=== PATIENT | female | born 1950 | race Caucasian/White ===

== ENCOUNTER 2018-06-11 01:25 | Outpatient (CLI) | payer MEDICARE, BC, SELFPAY ==
[2018-06-11 14:27] LABS: CREATININE 1.08 mg/dL (0.55-1.02); Estimated GFR 50.45 (mL/min/1.73m2); Potassium 4.8 mmol/L (3.5-5.1)
== END 2018-06-11 01:45 ==
PROVIDERS: PCP Family Medicine; Visit Provider Family Medicine
DX: I10 Essential (primary) hypertension (principal)
CPT/HCPCS: 36415; 82565; 84132

== ENCOUNTER 2018-10-31 10:12 | Emergency (ER) | payer MEDICARE, BC, SELFPAY ==
[2018-10-31 10:17] VITALS: BP 151/80; PULSE 80; RESP 16; TEMP 36.6; O2SAT 98
--- NOTE | 2018-10-31 10:27 | W.ED.GENAD ---
Discharge Plan Disposition Patient Disposition: HOME Condition: Improving Discharge Details Chief Complaint: RespSymp Clinical Impression: Acute bronchitis Primary Care Provider: Godfrey Durand ED Provider: Destin Arce Home Meds and New Rx's Prescriptions: New amoxicillin-pot clavulanate 875-125 mg tablet 1 tab PO BID 10 Days Qty: 20 RF: 0 Continued losartan 50 mg tablet 50 mg PO DAILY Qty: 90 RF: 3 clonazepam 0.5 mg tablet 0.5 mg PO BID PRN (Reason: anxiety) Qty: 15 RF: 0 aspirin [Aspir-81] 81 MG tablet,delayed release (DR/EC) 81 mg PO DAILY Qty: 100 RF: 3 imipramine HCl 50 MG tablet 50 mg PO DAILY Qty: 90 RF: 3 metoprolol succinate 100 MG tablet extended release 24 hr 100 mg PO DAILY Qty: 90 RF: 3 simvastatin 40 MG tablet 40 mg PO DAILY Qty: 90 RF: 3 Discharge Instructions Instructions: Acute Bronchitis (ED) Additional Instructions: Please take Augmentin twice daily as prescribed. I recommend you take an [id number]-[id number] probiotic once daily in the middle the day while on this medication. May use the provided albuterol inhaler 1 to 2 puffs every 4-6 hours as needed for wheeze or shortness of breath during times of illness. Continue your regular medications. Follow-up with Dr. York if not improving in 1 week's time. Return to the ER for any acute concern. Medical Decision Making 68-year-old female former smoker who presents with 4 to 5 days of cough, congestion, sinus pain and pressure and production of green sputum with associated subjective fever and chills at home. She is afebrile and oxygenating normally. Her exam reveals bilateral end expiratory wheeze and sinus pain to percussion. Given albuterol inhaler with spacer and teaching at the bedside with improvement. I do feel she has an acute bronchitis with developing sinusitis and with her probable underlying mild COPD, will treat with a course of Augmentin. She will follow-up with Dr. Durand in clinic if not improving in 1 week's time. She understands homecare and return precautions to the ER. HPI General Mode of arrival: ambulatory. Date/Time Provider Initiated Documentation: 10/31/18 10:13. Limitations to Documentation: no limitations. Information obtained by: patient and family. History of Present Illness 68 year old F presents to the emergency department with the chief complaint of Sinus pain, pressure, cough with production of green sputum, described as moderate, Quality is described as dull and constant, and is localized to the head, face and chest. Patient reports no radiation. Patient started experiencing this day(s) and it has been constant. No relieving factors improve symptom(s), No exacerbating factors reported . Patient notes cough, fever/chills and other (Sputum for); denies chest pain, nausea/vomiting and shortness of breath. Patient did receive the following treatments prior to arrival, none Related Data Home Medications Medication Instructions Recorded Confirmed aspirin [Aspir-81] 81 mg PO DAILY #100 tab-cap 05/30/15 10/31/18 imipramine HCl 50 mg PO DAILY #90 tab-cap 11/18/17 10/31/18 metoprolol succinate 100 mg PO DAILY #90 tab-cap 18 10/31/18 simvastatin 40 mg PO DAILY #90 tab-cap 18 10/31/18 clonazepam 0.5 mg tablet 0.5 mg PO BID PRN #15 tab-cap 06/02/18 10/31/18 losartan 50 mg tablet 50 mg PO DAILY #90 tab-cap 06/02/18 10/31/18 amoxicillin-pot clavulanate 1 tab PO BID 10 Days #20 tab 10/31/18 Previous Rx's Medication Instructions Recorded imipramine HCl 50 mg PO DAILY #90 tab-cap 11/18/17 metoprolol succinate 100 mg PO DAILY #90 tab-cap 11/18/17 simvastatin 40 mg PO DAILY #90 tab-cap 11/18/17 clonazepam 0.5 mg tablet 0.5 mg PO BID PRN #15 tab-cap 06/02/18 losartan 50 mg tablet 50 mg PO DAILY #90 tab-cap 06/02/18 amoxicillin-pot clavulanate 1 tab PO BID 10 Days #20 tab 10/31/18 Allergies Allergy/AdvReac Type Severity Reaction Status Date / Time hydrochlorothiazide AdvReac Unverified 10/31/18 10:20 lisinopril AdvReac Unverified 10/31/18 10:20 General Stated Complaint: RespSymp SHANICE: 3 Review of Systems Review of Systems 8 systems reviewed and otherwise negative [facility] Surgical History Colonoscopy - MAC (10/09/17) Social History Smoking/Tobacco Use Status: Former Tobacco Use Alcohol Intake: never Drug use: Never Substance use type: does not use Do you feel safe at home: Yes Do you feel safe in your relationship?: Yes Exam Narrative Exam Narrative: GEN: awake, alert, oriented 3. Pleasant, well groomed, interactive. HEAD: Normocephalic, atraumatic ENT: Mucous membranes moist, oropharynx unremarkable, External ear exam unremarkable. Tympanic membranes clear bilaterally. There is maxillary sinus tenderness to percussion EYES: PERRL, EOMI NECK: Full ROM, no RICHELLE, no menigismus CHEST/RESP: Nontender, bilateral end expiratory wheeze CARDIOVASCULAR: RRR, no murmur, rub aleksandra. 2+ Rad pulse bilateral ABDOMEN: Soft, nontender, no mass. +Bowel sounds EXT: Full ROM, no edema, no rash Neuro: Grossly normal neurologic exam, conversant, interactive. Psych: Speech fluent, thoughts congruent, affect normal Course Vital Signs Temperature 36.6 C 10/31/18 10:17 Pulse 80 10/31/18 10:17 Respiratory Rate 16 10/31/18 10:17 Blood Pressure 151/80 H 10/31/18 10:17 Pulse Oximetry 98 10/31/18 10:17 Temperature 36.6 C 10/31/18 10:17 Temperature Source Temporal Artery Scan 10/31/18 10:17 Pulse 80 10/31/18 10:17 Respiratory Rate 16 10/31/18 10:17 Respiratory Effort Non-Labored 10/31/18 10:18 Blood Pressure 151/80 H 10/31/18 10:17 Blood Pressure Position Sitting 10/31/18 10:17 Pulse Oximetry 98 10/31/18 10:17 Oxygen Delivery Method Room Air 10/31/18 10:17 Oxygen Flow Rate 0 10/31/18 10:17 Pain Level 0 10/31/18 10:17
--- NOTE | 2018-10-31 10:30 | ED.GENADUL_ITS ---
Discharge Plan Disposition Patient Disposition: HOME Condition: Improving Discharge Details Chief Complaint: RespSymp Clinical Impression: Acute bronchitis Primary Care Provider: Godfrye Durand ED Provider: Destin Arce Home Meds and New Rx's Prescriptions: New amoxicillin-pot clavulanate 875-125 mg tablet 1 tab PO BID 10 Days Qty: 20 RF: 0 Continued losartan 50 mg tablet 50 mg PO DAILY Qty: 90 RF: 3 clonazepam 0.5 mg tablet 0.5 mg PO BID PRN (Reason: anxiety) Qty: 15 RF: 0 aspirin [Aspir-81] 81 MG tablet,delayed release (DR/EC) 81 mg PO DAILY Qty: 100 RF: 3 imipramine HCl 50 MG tablet 50 mg PO DAILY Qty: 90 RF: 3 metoprolol succinate 100 MG tablet extended release 24 hr 100 mg PO DAILY Qty: 90 RF: 3 simvastatin 40 MG tablet 40 mg PO DAILY Qty: 90 RF: 3 Discharge Instructions Instructions: Acute Bronchitis (ED) Additional Instructions: Please take Augmentin twice daily as prescribed. I recommend you take an [id number] probiotic once daily in the middle the day while on this medication. May use the provided albuterol inhaler 1 to 2 puffs every 4-6 hours as needed for wheeze or shortness of breath during times of illness. Continue your regular medications. Follow-up with Dr. York if not improving in 1 week's time. Return to the ER for any acute concern. Medical Decision Making 68-year-old female former smoker who presents with 4 to 5 days of cough, congestion, sinus pain and pressure and production of green sputum with ass ociated subjective fever and chills at home. She is afebrile and oxygenating normally. Her exam reveals bilateral end expiratory wheeze and sinus pain to percussion. Given albuterol inhaler with spacer and teaching at the bedside with improvement. I do feel she has an acute bronchitis with developing sinusitis and with her probable underlying mild COPD, will treat with a course of Augmentin. She will follow-up with Dr. Durand in clinic if not improving in 1 week's time. She understands homecare and return precautions to the ER. HPI General Mode of arrival: ambulatory . Date/Time Provider Initiated Documentation: 10/31/18 10:13 . Limitations to Documentation: no limitations . Information obtained by: patient and family . History of Present Illness 68 year old F presents to the emergency department with the chief complaint of Sinus pain, pressure, cough with production of green sputum, described as moderate, Quality is described as dull and constant, and is localized to the head, face and chest. Patient reports no radiation. Patient started experiencing this day(s) and it has been constant. No relieving factors improve symptom(s), No exacerbating factors reported . Patient notes cough, fever/chills and other (Sputum for); denies chest pain, nausea/vomiting and shortness of breath. Patient did receive the following treatments prior to arrival, none Related Data Home Medications Medication Instructions Recorded Confirmed aspirin [Aspir-81] 81 mg PO DAILY #100 tab-cap 05/30/15 10/31/18 imipramine HCl 50 mg PO DAILY #90 tab-cap 11/18/17 10/31/18 metoprolol succinate 100 mg PO DAILY #90 tab-cap 18 10/31/18 simvastatin 40 mg PO DAILY #90 tab-cap 18 10/31/18 clonazepam 0.5 mg tablet 0.5 mg PO BID PRN #15 tab-cap 06/02/18 10/31/18 losartan 50 mg tablet 50 mg PO DAILY #90 tab-cap 06/02/18 10/31/18 amoxicillin-pot clavulanate 1 tab PO BID 10 Days #20 tab 10/31/18 Previous Rx's Medication Instructions Recorded imipramine HCl 50 mg PO DAILY #90 tab-cap 11/18/17 metoprolol succinate 100 mg PO DAILY #90 tab-cap 11/18/17 simvastatin 40 mg PO DAILY #90 tab-cap 11/18/17 clonazepam 0.5 mg tablet 0.5 mg PO BID PRN #15 tab-cap 06/02/18 losartan 50 mg tablet 50 mg PO DAILY #90 tab-cap 06/02/18 amoxicillin-pot clavulanate 1 tab PO BID 10 Days #20 tab 10/31/18 Allergies Allergy/AdvReac Type Severity Reaction Status Date / Time hydrochlorothiazide AdvReac Unverified 10/31/18 10:20 lisinopril AdvReac Unverified 10/31/18 10:20 General Stated Complaint: RespSymp SHANICE: 3 Review of Systems Review of Systems 8 systems reviewed and otherwise negative [facility] Surgical History Colonoscopy - MAC (10/09/17) Social History Smoking/Tobacco Use Status: Former Tobacco Use Alcohol Intake: never Drug use: Never Substance use type: does not use Do you feel safe at home: Yes Do you feel safe in your relationship?: Yes Exam Narrative Exam Narrative: GEN: awake, alert, oriented 3. Pleasant, well groomed, interactive. HEAD: Normocephalic, atraumatic ENT: Mucous membranes moist, oropharynx unremarkable, External ear exam unremarkable. Tympanic membranes clear bilaterally. There is maxillary sinus tenderness to percussion EYES: PERRL, EOMI NECK: Full ROM, no RICHELLE, no menigismus CHEST/RESP: Nontender, bilateral end expiratory wheeze CARDIOVASCULAR: RRR, no murmur, rub aleksandra. 2+ Rad pulse bilateral ABDOMEN: Soft, nontender, no mass. +Bowel sounds EXT: Full ROM, no edema, no rash Neuro: Grossly normal neurologic exam, conversant, interactive. Psych: Speech fluent, thoughts congruent, affect normal Course Vital Signs Temperature 36.6 C 10/31/18 10:17 Pulse 80 10/31/18 10:17 Respiratory Rate 16 10/31/18 10:17 Blood Pressure 151/80 H 10/31/18 10:17 Pulse Oximetry 98 10/31/18 10:17 Temperature 36.6 C 10/31/18 10:17 Temperature Source Temporal Artery Scan 10/31/18 10:17 Pulse 80 10/31/18 10:17 Respiratory Rate 16 10/31/18 10:17 Respiratory Effort Non-Labored 10/31/18 10:18 Blood Pressure 151/80 H 10/31/18 10:17 Blood Pressure Position Sitting 10/31/18 10:17 Pulse Oximetry 98 10/31/18 10:17 Oxygen Delivery Method Room Air 10/31/18 10:17 Oxygen Flow Rate 0 10/31/18 10:17 Pain Level 0 10/31/18 10:17
[2018-10-31] MEDS: Albuterol HFA 8 GM 60 PUFF INH IH (10:31)
[2018-10-31] MEDS: Inhaler, Assist Device 1 EACH MC (10:31)
[2018-10-31 10:37] VITALS: PULSE 72; O2SAT 96
== END 2018-10-31 10:42 | disposition home or self-care (01) ==
LOC: ER 10:43
PROVIDERS: Emergency Provider Emergency Medicine; PCP Family Medicine
DX: J20.9 Acute bronchitis, unspecified (principal); Z87.891 Personal history of nicotine dependence
CPT/HCPCS: 99283

== ENCOUNTER 2019-06-21 00:59 | Outpatient (CLI) | payer MEDICARE, BC, SELFPAY ==
--- NOTE | 2019-06-21 10:55 | DI.MAMMO_ITS ---
EXAM: MG MAMMO SCREENING CLINICAL HISTORY: screening, Z12.39. TECHNIQUE: Full field digital CC and MLO mammographic images were obtained with 3D tomosynthesis and utilizing computer aided detection (CAD). COMPARISON: . 2012 through 2017 FINDINGS: Breast Density - Category B - Scattered areas of fibroglandular density Masses/Architectural Distortion: None seen. Microcalcifications: No suspicious pleomorphic-type calcifications are seen. Skin Thickening/Nipple Retraction: None. Axilla: Unremarkable. IMPRESSION: 1. BI-RADS category 1, negative. No significant interval change with no specific features of maligna ncy noted. 2. Unless there is more urgent need, screening mammography is recommended, as per [employer] guidelines. A negative radiographic report should not delay biopsy if a dominant or clinically suspicious mass is present. Up to ten percent of cancers are not identified on mammography. A negative report may reinforce clinical impression. Adenosis and dense breasts may obscure an underlying neoplasm. False positive reports average 6 to 10%. Patient will receive a letter notifying them of these results.
== END 2019-06-21 01:19 ==
PROVIDERS: PCP Family Medicine; Visit Provider Family Medicine
DX: Z12.31 Encounter for screening mammogram for malignant neoplasm of breast (principal)
CPT/HCPCS: 77063; 77067

== ENCOUNTER 2019-06-21 01:19 | Outpatient (CLI) | payer MEDICARE, BC, SELFPAY ==
[2019-06-21 11:09] LABS: CREATININE 1.05 mg/dL (0.55-1.02); Estimated GFR 51.96 (mL/min/1.73m2); Potassium 4.5 mmol/L (3.5-5.1)
== END 2019-06-21 01:39 ==
PROVIDERS: PCP Family Medicine; Visit Provider Family Medicine
DX: I10 Essential (primary) hypertension (principal)
CPT/HCPCS: 36415; 82565; 84132

== ENCOUNTER 2020-06-15 11:08 | Outpatient (REF) | payer MEDICARE, BC, SELFPAY ==
[2020-06-19 15:32] LABS: Helicobacter pylori Ag, Feces Negative (Negative)
== END 2020-06-15 11:28 ==
LOC: NCHCN 11:08
PROVIDERS: PCP Family Medicine; Visit Provider Family Medicine
DX: R10.13 Epigastric pain
CPT/HCPCS: 87338

== ENCOUNTER 2020-06-18 02:33 | Outpatient (CLI) | payer MEDICARE, BC, SELFPAY ==
--- NOTE | 2020-06-18 07:15 | DI.US_ITS ---
EXAM: US ABDOMEN CLINICAL HISTORY: EPIGASTRIC PAIN,R10.13,? INTRA-ABDOMINAL PATHOLOGY TECHNIQUE: Ultrasound of complete upper abdomen performed using standard protocol. COMPARISON: CT ABD PELVIS WITH CONTRAST from 09/02/2014 US LEFT BREAST ULTRASOUND from 06/22/2017 FINDINGS: There is no ascites evident. LIVER: There are no hepatic lesions evident nor obvious dilatation of intrahepatic ducts. GALLBLADDER/BILIARY: There are no gallstones. No gallbladder wall edema nor pericholecystic fluid. The common hepatic duct isnot dilated, measuring 3-4mm at the level of carmen hepatis. PANCREAS: Less than optimally seen due to overlying bowel gas SPLEEN: The spleen is not enlarged and there are no intrasplenic lesions evident. KIDNEYS:Kidneys exhibit normal size with no evidence of solid mass, calculus, nor hydronephrosis. No cortical cysts evident. ABDOMINAL AORTA: There is no evidence of abdominal aortic aneurysm. For common there is atherosclero tic involvement of the abdominal aorta evident. IVC: Normal diameter where visualized. IMPRESSION: 1. No evidence of cholelithiasis nor dilatation of the biliary tree. 2. Atherosclerotic abdominal aorta without evidence of obvious aneurysm. 3. Pancreas somewhat less than optimally seen due to overlying bowel gas. Please note that prior CT scan 2014 revealed very large hiatal hernia. DATA REPOSITORY:
== END 2020-06-18 02:53 ==
PROVIDERS: PCP Family Medicine; Visit Provider Family Medicine
DX: R10.13 Epigastric pain (principal)
CPT/HCPCS: 76700

== ENCOUNTER 2020-06-18 05:13 | Outpatient (CLI) | payer MEDICARE, BC, SELFPAY ==
[2020-06-18 10:14] LABS: ALT 19 U/L (14-59); AST 19 U/L (15-37); Albumin 3.9 g/dL (3.4-5.0); Anion Gap 5.7 mmol/L (3-11); BUN 18 mg/dL (7-18); Bilirubin, Direct 0.08 mg/dL (0.00-0.20); Bilirubin, Total 0.4 mg/dL (0.2-1.0); CO2 30.3 mmol/L (21.0-32.0); CREATININE 0.94 mg/dL (0.55-1.02); Calcium 8.9 mg/dL (8.5-10.1); Chloride 103 mmol/L (98-107); Estimated GFR 58.87 (mL/min/1.73m2); Glucose 107 mg/dL (74-106); Potassium 4.1 mmol/L (3.5-5.1); Sodium 139 mmol/L (136-145); Total Protein 6.7 g/dL (6.4-8.2)
[2020-06-18 10:15] LABS: Alkaline Phosphatase 102 U/L (46-116)
[2020-06-18 10:28] LABS: Calculated LDL 95 mg/dL (<100); Cholesterol 172 mg/dL (<200); HDL Cholesterol 63 mg/dL (40-60); Triglyceride 72 mg/dL (<150)
== END 2020-06-18 05:33 ==
PROVIDERS: PCP Family Medicine; Visit Provider Family Medicine
DX: E78.5 Hyperlipidemia, unspecified (principal); E87.1 Hypo-osmolality and hyponatremia; G72.89 Other specified myopathies; R10.13 Epigastric pain
CPT/HCPCS: 36415; 80048; 80061; 80076; 76700

== ENCOUNTER 2021-03-27 16:12 | Outpatient (REF) | payer MEDICARE, BC, SELFPAY ==
[2021-03-29 10:44] LABS: COVID-19 RT-PCR UVMMC Result Negative (Negative)
== END 2021-03-27 16:13 | disposition home or self-care (01) ==
LOC: LBN 16:12
PROVIDERS: PCP Family Medicine; Visit Provider Family Medicine
DX: Z20.822 Contact with and (suspected) exposure to COVID-19 (principal)
CPT/HCPCS: U0003; U0005

== ENCOUNTER 2021-05-29 10:31 | Outpatient (REF) | payer MEDICARE, BC, SELFPAY ==
[2021-05-30 13:19] LABS: COVID-19 RT-PCR UVMMC Result Negative (Negative)
== END 2021-05-29 10:32 | disposition home or self-care (01) ==
LOC: LBN 10:31
PROVIDERS: PCP Family Medicine; Visit Provider Nurse Practitioner Family
DX: Z20.822 Contact with and (suspected) exposure to COVID-19 (principal)
CPT/HCPCS: U0003; U0005

== ENCOUNTER 2021-06-19 19:15 | Outpatient (REF) | payer MEDICARE, BC, SELFPAY ==
[2021-06-19 20:46] LABS: Bilirubin Negative (Negative); Blood Negative (Negative); Clarity Clear (Clear); Glucose Negative (Negative); Ketones Negative (Negative); Leukocyte Esterase Trace (Negative); Nitrite Negative (Negative); Specific Gravity 1.025 (1.005-1.025); Urobilinogen 0.2 EU/dL (Up TO 0.2)
== END 2021-06-19 19:16 | disposition home or self-care (01) ==
LOC: LBN 19:15
PROVIDERS: PCP Family Medicine; Visit Provider Family Medicine
DX: R30.0 Dysuria (principal)
CPT/HCPCS: 87077; 81003; 81015; 87086; 87186

== ENCOUNTER 2021-07-04 20:04 | Emergency (ER) | payer MEDICARE, BC, SELFPAY ==
[2021-07-04 20:08] VITALS: BP 151/73; PULSE 89; RESP 18; TEMP 36.3; O2SAT 98
--- NOTE | 2021-07-04 20:15 | RT.EKG_ITS ---
APPROVED REPORT Exam: Resting ECG Reason for Exam: SOB, Palpitations Patient Location: E HR:81 bpm ECG Measurements Heart Rate 81 AXIS LA 187 P 34 QRSd 97 QRS 52 QT 386 T 144 QTc 448 Conclusion Sinus rhythm...normal P axis, V-rate 60- 99 Abnormal T, consider ischemia, lateral leads...T <-0.20mV, I aVL V5 V6
--- NOTE | 2021-07-04 20:15 | DI.CT_ITS ---
Exam(s) CT ABDOMEN PELVIS W EXAM: CT ABDOMEN PELVIS W CLINICAL HISTORY: LUQ LLQ abd pain TECHNIQUE: Imaging Protocol: Axial computed tomography images with coronal and sagittal reformatted images were created and reviewed CONTRAST MATERIAL: Intravenous: Omnipaque 350 Contrast volume:100 mL Oral: No COMPARISON: CT ABD PELVIS WITH CONTRAST from 09/02/2014 FINDINGS: ABDOMEN: Lung Bases: There is a large hiatal hernia with nearly all of the stomach and a large portion of the pancreas contained within the hernia. This is unchanged compared to the prior examination. There is also a small component of the transverse colon contained within the hernia. There is also marked th inning and calcification of the wall of the lateral ventricle with an enlarged left ventricle. This may represent a ventricular aneurysm. There is a question of postsurgical changes involving the saad cardium in this region. Liver: Normal density. There are few tiny hypodensities within the liver. They are too small for fur ther characterization. No suspicious hepatic masses are seen. Portal, Superior Mesenteric, and Splenic Veins: Unremarkable. Gallbladder and Biliary Tract: No radiodense calculus or dilation. Pancreas: Normal density, no abnormal calcifications or inflammatory process. Spleen: Normal. Adrenals: No masses seen. Kidneys: Normal size, contour and axis. No radiodense stones or obstructive uropathy. No masses seen. Abdominal Aorta: Abdominal portion non-dilated. Atherosclerosis. Bowel: No obstruction or bowel wall thickening. A normal appendix is visualized. There is a redundan t sigmoid colon. Diverticulosis of the colon is seen but no evidence of acute diverticulitis. There is a large amount of stool seen in the right colon and transverse colon. Peritoneal Cavity: No ascites, collection or mesenteric inflammatory response. No free air. Lymph Nodes: Within normal limits. Bones: Within normal limits for the patient's age. Soft Tissues: There is a small fat containing midline supraumbilical hernia. PELVIS: Bladder: Symmetric distention, no gross wall thickening. Reproductive Organs: Unremarkable as visualized. Lymph Nodes: Within normal limits. Bones: Within normal limits for the patient's age. IMPRESSION: 1. There is a large hiatal hernia which contains components of the pancreas nearly all of the stomach and a portion of the transverse colon. No evidence of strangulation or obstruction. 2. Colonic diverticulosis but no evidence of acute diverticulitis. 3. No acute abdominal or pelvic process. RADIATION DOSE DELIVERED: 877.91mGy.cm Total DLP DATA REPOSITORY: All CT scans at this facility are submitted to the National Radiology Data Registry (NRDR) Dose Index Registry (DIR) with the [employer] (A[employer]). RADIATION OPTIMIZATION: All CT scans at this facility use at least one of these dose optimization te chniques: automated exposure control; mA and/or kV adjustment per patient size (includes targeted exa ms where dose is matched to clinical indication); or iterative reconstruction.
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
[2021-07-04 20:56] LABS: Abs Immature Grans 0.01 10^3/uL (0.0-0.06); Absolute Basophil Count 0.02 10^3/uL (0.0-0.2); Absolute Eosinophil Count 0.13 10^3/uL (0.0-0.7); Absolute Lymphocyte Count 0.17 10^3/uL (1.2-3.4); Absolute Monocyte Count 0.27 10^3/uL (0.1-0.8); Absolute Neutrophil Count 6.01 10^3/uL (1.2-6.7); Basophils % 0.3; HCT 39.8 % (36.0-46.0); HGB 12.8 g/dL (11.2-15.7); Immature Grans % 0.2; Lymphocytes % 2.6; MCH 31.4 pg (27.0-33.0); MCHC 32.2 % (32.0-36.0); MCV 97.8 fL (80-95); MPV 10.9 fL (8.0-11.0); Monocytes % 4.1; Neutrophils % 90.8; Nucleated RBC 0 %; Platelet Count 132 10^3/uL (130-400); RBC 4.07 10^6/uL (3.93-5.22); RDW 12.1 % (11.7-14.6); RDW-SD 43.9 fL; WBC 6.61 10^3/uL (4.4-10.8)
[2021-07-04 21:09] LABS: ALT 16 U/L (14-59); AST 24 U/L (15-37); Albumin 3.7 g/dL (3.4-5.0); Alkaline Phosphatase 117 U/L (46-116); Anion Gap 6.5 mmol/L (3-11); BUN 17 mg/dL (7-18); Bilirubin, Total 0.5 mg/dL (0.2-1.0); CO2 24.5 mmol/L (21.0-32.0); CREATININE 0.9 mg/dL (0.55-1.02); Calcium 8.9 mg/dL (8.5-10.1); Chloride 97 mmol/L (98-107); Glucose 99 mg/dL (74-106); Lipase 50 U/L (73-393); Potassium 3.4 mmol/L (3.5-5.1); Sodium 128 mmol/L (136-145); Total Protein 7.2 g/dL (6.4-8.2); Troponin I < 50 ng/L (<or=60)
--- NOTE | 2021-07-04 21:18 | NUR.NOTE ---
Nursing Note:Pt to radiology via stretcher with tech for CT scan, no change in pt complaints, NAD noted.
[2021-07-04] MEDS: Omnipaque 350 MG/ML 100 ML BTL IV (21:20)
[2021-07-04 21:41] VITALS: BP 150/59; PULSE 81; RESP 18; O2SAT 98
[2021-07-04] MEDS: Normal Saline 1,000 ML 1000 ML IV (21:44)
--- NOTE | 2021-07-04 22:06 | DI.VRAD_ITS ---
PROCEDURE INFORMATION: Exam: CT Abdomen And Pelvis With Contrast Exam date and time: 07/04/2021 8:29 PM Age: 71 years old Clinical indication: Other: Luq, llq pain TECHNIQUE: Imaging protocol: Computed tomography of the abdomen and pelvis with contrast. Radiation optimization: All CT scans at this facility use at least one of these dose optimization techniques: automated exposure control; mA and/or kV adjustment per patient size (includes targeted exams where dose is matched to clinical indication); or iterative reconstruction. Contrast material: OMNIPAQUE 350; Contrast volume: 100 ml; Contrast route: INTRAVENOUS (IV); COMPARISON: CT ABD PELVIS WITH CONTRAST 09/02/2014 7:03 AM FINDINGS: Lungs: There is increased bibasilar airspace opacity in a configuration suggesting atelectasis. Pleural spaces: Findings suggest a new tiny right pleural effusion on image 205, series 6. Heart: There are postoperative changes involving the left lateral wall of the left ventricle, with findings suggesting focal ventricular aneurysm in this region, as seen on image 60, series 6. There appears to be surgical material in the region of the pericardium and myocardium in this region. Liver: There is a sub cm low-dense lesion within the right hepatic lobe which is too small to characterize but likely represents a benign cyst or biliary hamartoma. No mass. Gallbladder and bile ducts: The gallbladder is mildly distended. There is no evidence for acute cholecystitis. Pancreas: Normal. No ductal dilation. Spleen: Normal. No splenomegaly. Adrenal glands: There is diffuse bilateral nonspecific mild adrenal enlargement, suggesting hyperplasia. Kidneys and ureters: There is a tiny sub cm low-dense right renal lesion which is too small to characterize but likely represents a benign cyst. No renal or ureteral stones are identified. There is no hydronephrosis or hydroureter. Stomach and bowel: Again noted is a large hiatal hernia, with the entire stomach residing within the lower mediastinum, only partially imaged. The hernia sac also contains the duodenal bulb as well as the proximal pancreatic body and tail and a short loop of proximal transverse colon. There is no evidence for obstruction or strangulation. There is diverticulosis of the distal descending colon and sigmoid colon. The prior findings of acute diverticulitis have resolved. There are multiple new prominent air and fluid-filled small bowel loops which are not frankly dilated as well as mild distension of the proximal colon with the cecum measuring up to 5.7 cm. Findings could reflect ileus. Appendix: The appendix is well visualized and appears normal. Intraperitoneal space: Unremarkable. No free air. No significant fluid collection. Vasculature: The aorta and iliac arteries demonstrate severe atherosclerotic calcification without aneurysm formation. Lymph nodes: Unremarkable. No enlarged lymph nodes. Urinary bladder: Unremarkable as visualized. Reproductive: Unremarkable as visualized. Bones/joints: There is moderate facet arthrosis the lower lumbar spine as well as moderate degenerative disc disease at L5-S1 with more mild degenerative changes at multiple more superior levels. There is mild grade 1 anterolisthesis of L4 on L5, likely chronic and degenerative. Soft tissues: See Stomach and bowel finding. IMPRESSION: 1. Large hiatal hernia, as on prior study, with the entire stomach residing within the lower mediastinum. 2. Distal colonic diverticulosis without evidence for acute diverticulitis. 3. Increased prominent air-filled loops of small and large bowel, suggesting ileus. 4. Postoperative changes of the left ventricle and pericardium as described above. Dictated and Authenticated by: Domenico Donnelly MD. Ordering:ANTHONY Marquez MD
[2021-07-04] MEDS: Magnesium Citrate 300 ML BTL 150 ML PO (23:14)
== END 2021-07-04 23:45 | disposition home or self-care (01) ==
PROVIDERS: Emergency Provider Registered Nurse Emergency; PCP Family Medicine
DX: R10.32 Left lower quadrant pain (principal); K56.7 Ileus, unspecified; R06.02 Shortness of breath; R00.2 Palpitations; R10.12 Left upper quadrant pain
CPT/HCPCS: 36415; 80053; 83690; 93005; 96360; 99285; 74177; 83735; 84484; 85025; 93010; 99284; J3490

== ENCOUNTER 2021-07-15 18:49 | Outpatient (REF) | payer MEDICARE, BC, SELFPAY ==
[2021-07-15 19:19] LABS: Bilirubin Negative (Negative); Blood Negative (Negative); Clarity Clear (Clear); Glucose Negative (Negative); Ketones Negative (Negative); Leukocyte Esterase Negative (Negative); Nitrite Negative (Negative); Urobilinogen 0.2 EU/dL (Up TO 0.2)
[2021-07-15 19:29] LABS: Epithelial Cells Many HPF (Negative); RBC 0-2 HPF (0-2)
[2021-07-15 19:30] LABS: Bacteria Rare HPF (Negative); C & S Indicated? C&S Done As Ordered; Crystals Negative HPF (Negative); Mucus Heavy (Negative)
== END 2021-07-15 18:50 | disposition home or self-care (01) ==
LOC: LBN 18:49
PROVIDERS: PCP Family Medicine; Visit Provider Nurse Practitioner Family
DX: N30.90 Cystitis, unspecified without hematuria (principal); M54.50 Low back pain, unspecified
CPT/HCPCS: 81003; 81015; 87086

== ENCOUNTER 2021-08-02 02:48 | Outpatient (CLI) | payer MEDICARE, BC, SELFPAY ==
--- NOTE | 2021-08-02 07:00 | DI.MAMMO_ITS ---
Exam(s) MAMMO SCREENING EXAM: MAMMO SCREENING CLINICAL HISTORY: screening,z12.39. TECHNIQUE: Bilateral full field digital CC and MLO mammographic images were obtained with 3D tomosyn thesis and utilizing computer aided detection (CAD). COMPARISON: Prior mammograms were reviewed, the most recent being May 2019. Prior ultrasound May 2017 was reviewed FINDINGS: There are no new significant radiographic findings in the left breast. Towards the upper outer quadrant of the right breast there is an area of asymmetric density measuring 9 x 6 millimeters and located 8 cm in from the nipple. Not evident on prior studies. There are no malignant-appearing microcalcification groups is region or elsewhere in either breast. No new radha ectural distortion or skin thickening-traction. IMPRESSION: 1. No radiographic evidence of malignancy in left breast. 2. Right breast asymmetric density-possible nodule. Spot compression 3D MLO view recommended. Also breast ultrasound. BI-RADS Category 0 - Assessment Incomplete: Need additional imaging evaluation Breast Density - Category B - Scattered areas of fibroglandular density Breast density Category C or D implies that the patient has dense breast tissue. Dense breast tissue can make it harder to find cancer on a mammogram. Dense breast tissue is also associated with an incr eased risk of breast cancer. This information about the result of the mammogram report was provided to the patient to raise their awareness. Use this report when you speak with the patient about their risks for breast cancer, which includes their family history. At that time, you may recommend additional screening tests (Ultrasoun d or MRI) as these tests may add significant information. A negative radiographic report should not delay biopsy if a dominant or clinically suspicious mass is present. Up to ten percent of cancers are not identified on mammography. A negative report may reinforce clinical impression. Adenosis and dense breasts may obscure an underlying neoplasm. False positive reports average 6 to 10%. Patient will receive a letter notifying them of these results.
== END 2021-08-02 03:08 ==
PROVIDERS: PCP Family Medicine; Visit Provider Family Medicine
DX: Z12.31 Encounter for screening mammogram for malignant neoplasm of breast (principal); R92.8 Other abnormal and inconclusive findings on diagnostic imaging of breast
CPT/HCPCS: 77063; 77067

== ENCOUNTER 2021-08-04 20:23 | Emergency (ER) | payer MEDICARE, BC, SELFPAY ==
[2021-08-04] VITALS (12 sets, daily range): BP systolic 133–194; BP diastolic 79–99; PULSE 70–78; RESP 1–26; TEMP 36.7; O2SAT 96–100
--- NOTE | 2021-08-04 20:15 | RT.EKG_ITS ---
APPROVED REPORT Exam: Resting ECG Reason for Exam: SOB Patient Location: E HR:74 bpm ECG Measurements Heart Rate 74 AXIS CO 180 P 42 QRSd 104 QRS 42 QT 397 T 139 QTc 439 Conclusion Sinus rhythm...normal P axis, V-rate 60- 99 Abnormal T, consider ischemia, lateral leads...T <-0.20mV, I aVL V5 V6 Physician: no stemi, unchanged from 07/04/21 ekg
--- NOTE | 2021-08-04 20:15 | DI.RAD_ITS ---
Exam(s) XR PORTABLE CHEST AP EXAM: XR PORTABLE CHEST AP CLINICAL HISTORY: SOB TECHNIQUE: 2D digital imaging was performed. COMPARISON: CT CT CHEST PE CTA from 08/04/2021 FINDINGS: There is a large hiatal hernia with adjacent atelectasis. No definite infiltrate is seen. No visibl e effusions. The heart size is normal. Sternal wires and and surgical clips are present. Prior CAB G. IMPRESSION: No acute pulmonary findings. Large hiatal hernia. DATA REPOSITORY: RADIATION DOSE DELIVERED:
--- NOTE | 2021-08-04 20:29 | ED.GENADUL_ITS ---
Discharge Plan Disposition Patient Disposition: HOME Condition: Improving Discharge Details Clinical Impression: COPD exacerbation Primary Care Provider: Godfrey Durnad ED Provider: Alma Iyer Home Meds and New Rx's Prescriptions: New (DME) nebulizer and compressor Device See Rx Instructions .Route Qty: 1 0RF Rx Instructions: As directed ipratropium-albuterol 0.5 mg-3 mg(2.5 mg base)/3 mL solution for nebulization 3 ml inhalation Q4H PRN (Reason: shortness of breath or wheezing) Qty: 90 0RF Rx Instructions: Use every 4-6 hours as need for SOB or wheezing (DME) nebulizer and compressor Device See Rx Instructions .Route Qty: 1 0RF Rx Instructions: As directed Continued albuterol sulfate [Ventolin HFA] 90 mcg/actuation HFA aerosol inhaler 2 puff inhalation QID PRN (Reason: shortness of breath or wheezing) Qty: 8.5 1RF aspirin [Aspir-81] 81 MG tablet,delayed release (DR/EC) 81 mg PO DAILY Qty: 100 3RF clonazepam 0.5 mg tablet 0.5 mg PO BID PRN (Reason: anxiety) Qty: 10 0RF imipramine HCl 50 mg tablet 50 mg PO DAILY Qty: 90 3RF metoprolol succinate 100 mg tablet extended release 24 hr 100 mg PO DAILY Qty: 90 3RF simvastatin 40 mg tablet 40 mg PO DAILY Qty: 90 3RF losartan 50 mg tablet 75 mg PO DAILY Qty: 135 3RF Rx Instructions: dose increase 07/03/21 Discharge Instructions Instructions: COPD (Chronic Obstructive Pulmonary Disease) (ED) Additional Instructions: At this time there is no evidence for pulmonary embolism or pneumonia. The cardiac work-up is largely within normal limits. Follow up with primary care provider in 3-5 days. Return to ED sooner if any worsening shortness of breath, chest pain or concerns. Increase oral fluids. Referrals: Godfrey Durand MD [Primary Care Provider] - 3 days Medical Decision Making 71-year-old female presents to the ER via EMS with chief complaint of shortness of breath and COPD exacerbation which began approximately a day and a half ago. Patient use albuterol inhaler which has not been helping at home. Patient was given a DuoNeb by EMS prior to arrival which improved her symptoms. Patient is oxygen saturation 98% on room air upon initial exam. Work-up ordered including serial troponins, D-dimer, proBNP, chest x-ray and EKG. DuoNeb and 125 mg Solu-Medrol ordered. EKG was reviewed by Dr. Fortino Barajas ER attending, please see his official report and review. Old EKG available for review. No significant changes seen by me. CBC shows no leukocytosis, D-dimer slightly elevated at 781, CMP largely unremarkable initial troponin within normal limits proBNP is elevated at 1558 Imaging protocol: XR of the chest. Views: 1 view. COMPARISON: CR CHEST 2 VIEWS PA,LAT 03/12/2017 09:36 FINDINGS: Lungs: Probable compressive atelectasis in the right lung base. Pleural spaces: No pleural effusion. No pneumothorax. Heart/Mediastinum: Similar mild cardiomegaly without vascular congestion. Click CABG large hiatal hernia, similar. Bones/joints: Median sternotomy wires. No displaced fracture. IMPRESSION: 1. No acute findings. 2. Chronic findings as described. Thank you for allowing us to participate in the care of your patient. Dictated and Authenticated by: Nuris Nguyen MD COMPARISON: CR CHEST 2 VIEWS PA,LAT 03/12/2017 09:36 FINDINGS: Pulmonary arteries: No pulmonary emboli. Aorta: No aortic aneurysm. No aortic dissection. Lungs: Mild compressive atelectasis in the lung bases. No evidence of pulmonary infarct or pneumonia. Pleural spaces: No pneumothorax. No pleural effusion. Heart: CABG. Mild cardiomegaly. 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 Lymph nodes: No enlarged lymph nodes. Stomach and bowel: Large hiatal hernia containing stomach, mesentery, pancreas. Bones/joints: Median sternotomy wires. Exaggerated thoracic kyphosis. Degenerative changes in the spine. No acute fracture or subluxation. Soft tissues: No suspicious lesions. IMPRESSION: 1. No pulmonary emboli are seen. 2. Incidental findings as described. Covid swab is pending at this time. Will call patient if is positive. 2124: Patient reevaluation, she reports she feels much better after the neb and steroids wheezing has diminished throughout. 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 This could contribute to her increased shortness of breath. I did discuss plan for CT chest to rule out PE or any worsening of her hernia she verbalized understanding and is in agreement with this plan. This text was generated using Angelfishation system, please disregard any oddities of phrase or misspellings. Medical Records Medical records reviewed: Yes I reviewed the patient's medical records. Medical records narrative: From PCP Clinic Visit 07/15/21: PMHX: Coronary disease (Chronic) a. Presented April 2010 w/ burning between her shoulder blades & found to h ave an ST elevation KS. b. Status post CABG x3 April 2010. c. 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 d. R/O KS episodes x2 August 2010. e. Cath at time showed significant stenosis of left main, three-vessel coronary disease, patient left internal mammary artery gradt to LAD, but obstructive disease of the saphenous graft to ELISABETH, and RCA with decreased LB ejection fraction of 20%. 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 A 45-[id number]-cglx history of smoking. b. Quit 2008, but still puffs occasionally. -08/25/13 HPI General Mode of arrival: EMS . Date/Time Provider Initiated Documentation: 08/04/21 20:26 . Limitations to Documentation: no limitations . Information obtained by: patient, EMS, RN notes reviewed and old records reviewed . HPI Narrative: 71-year-old female presents to the ER via EMS with chief complaint of shortness of breath and COPD exacerbation which began approximately a day and a half ago. Patient use albuterol inhaler which has not been helping at home. Patient was given a DuoNeb by EMS prior to arrival which improved her symptoms. She was found to have inspiratory and expiratory wheezes on the unit with O2 sat of 95% on room air. Upon initial presentation she does still have some expiratory wheezes throughout all payan. She is speaking in full sentences denies any chest pain no nausea vomiting diarrhea or fever. She does have a past medical history of hiatal hernia, GERD, COPD, high cholesterol, hypertension, coronary artery disease. Related Data Home Medications Medication Instructions Recorded Confirmed aspirin 81 mg tablet,delayed 81 mg PO DAILY #100 tab-cap 05/30/15 08/04/21 release (Aspir-) clonazepam 0.5 mg tablet 0.5 mg PO BID PRN #10 tab-cap 04/04/20 08/04/21 imipramine HCl 50 mg tablet 50 mg PO DAILY #90 tab-cap 11/29/20 08/04/21 metoprolol succinate 100 mg 100 mg PO DAILY #90 tab-cap 11/29/20 08/04/21 tablet,extended release 24 hr simvastatin 40 mg tablet 40 mg PO DAILY #90 tab-cap 01/23/21 08/04/21 albuterol sulfate 90 mcg/actuation 2 puff INHALATION QID PRN #8.5 g 06/18/21 08/04/21 aerosol inhaler (Ventolin HFA) losartan 50 mg tablet 75 mg PO DAILY #135 tab-cap 07/04/21 08/04/21 ipratropium 0.5 mg-albuterol 3 mg 3 ml INHALATION Q4H PRN #90 ml 08/04/21 (2.5 mg base)/3 mL nebulization soln nebulizer and compressor #1 ea 08/04/21 nebulizer and compressor #1 ea 08/04/21 Previous Rx's Medication Instructions Recorded clonazepam 0.5 mg tablet 0.5 mg PO BID PRN #10 tab-cap 04/04/20 imipramine HCl 50 mg tablet 50 mg PO DAILY #90 tab-cap 11/29/20 metoprolol succinate 100 mg 100 mg PO DAILY #90 tab-cap 11/29/20 tablet,extended release 24 hr simvastatin 40 mg tablet 40 mg PO DAILY #90 tab-cap 01/23/21 albuterol sulfate 90 mcg/actuation 2 puff INHALATION QID PRN #8.5 g 06/18/21 aerosol inhaler (Ventolin HFA) losartan 50 mg tablet 75 mg PO DAILY #135 tab-cap 07/04/21 ipratropium 0.5 mg-albuterol 3 mg 3 ml INHALATION Q4H PRN #90 ml 08/04/21 (2.5 mg base)/3 mL nebulization soln nebulizer and compressor #1 ea 08/04/21 nebulizer and compressor #1 ea 08/04/21 Allergies Allergy/AdvReac Type Severity Reaction Status Date / Time hydrochlorothiazide AdvReac Verified 08/04/21 20:38 lisinopril AdvReac Verified 08/04/21 20:38 General SHANICE: 3 Review of Systems All systems reviewed & are unremarkable except as noted in HPI and below Cardiovascular Cardiovascular: Reports dyspnea Respiratory Respiratory: Reports dyspnea and Reports wheezing Allergic/Immunologic Allergic/Immunologic: Reports wheezing PFSH All Active Problems COPD exacerbation (Acute) Hiatal hernia (Chronic) Bronchitis (Acute) Viral URI (Acute) COPD exacerbation (Acute) Allergic sinusitis (Acute) Excessive cerumen in ear canal (Acute) Epigastric pain (Acute) Acute hemorrhoid (Acute 04/23/17) Aneurysm of heart (Acute) S/P SURGICAL REPAIR Chronic GERD (Acute 12/26/15) Constipation (Acute 04/23/17) Depressive disorder (Acute 11/01/12) History of tobacco use (Acute) Hyperlipidemia (Acute 11/01/12) well controlled anginal episode (Acute 08/25/13) a. Initial EKG no change. b. Initial troponin negative. c. Admitted to ICU for observation Coronary disease (Chronic) a. Presented April 2010 w/ burning between her shoulder blades & found to have an ST elevation KS. b. Status post CABG x3 April 2010. c. 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 d. R/O KS episodes x2 August 2010. e. Cath at time showed significant stenosis of left main, three-vessel coronary disease, patient left internal mammary artery gradt to LAD, but obstructive disease of the saphenous graft to ELISABETH, and RCA with decreased LB ejection fraction of 20%. Lateral wall pseudoaneurysm of the LV appears somewhat changed since 09/05/2010 w/ a separate anterior tract. Chronic obstructive pulmonary disease (COPD) (Chronic) a. A 01-wars-vmmh history of smoking. b. Quit 2008, but still puffs occasionally. -08/25/13 Hypercholesteremia (Chronic) a. On therapy. b. LDL 63. Memory loss (Chronic) mild Depression (Chronic) Hypertension (Chronic) Family history of colorectal cancer (Chronic) in brother. History of surgery (Chronic) a. CABG x3 2008. b. Aneurysm surgery 2008. Surgical History Colonoscopy - MAC (10/09/17) Family History Mother , age 80 No problems noted. Father , age 89 Cancer Social History Smoking/Tobacco Use Status: Never Smoking risk assessment performed?: Yes Alcohol Intake: never Drug use: Never Substance use type: does not use Caregiver/Support person: No Household members: spouse Communication Needs: None Pets and animals: No Duration: 30-45 minutes/day Frequency: daily Seatbelt use: always Drive intox or ride w/intox subway train driver: No Do you feel safe at home: Yes Do you feel safe in your relationship?: Yes Victim of physical abuse: No Victim of emotional abuse: No Victim of sexual abuse: No Would you like helpful sources: No Exam Narrative Exam Narrative: Constitutional: Alert and oriented x3. Appears stated age. Normal body habitus. Head: Normocephalic, no trauma. Eyes: Pupils PERRL, Red reflex noted, EOM's intact. Eyelids symmetrical without lesions, discharge, or swelling. ENT: Bilateral TM's WNL, External ear normal to inspection, no mastoid TTP, swelling, or erythema, Nasal turbinates WNL, no nasal discharge. Normal dentition, Posterior pharynx WNL, no exudate. Chest: RRR, Normal S1, S2, distal pulses intact. Resp: Inspiratory expiratory wheezes scattered throughout all lung payan Abdomen: Soft, non-distended, Normoactive bowel sounds all 4 quads. Musculoskeletal: Normal gait, 5/5 strength to all four extremities. Skin: No suspicious rashes or lesions. Capillary refill less than 2 sec. Neurologic: Cranial nerves II-XII intact. Alert and oriented x 3. Motor: No deficits noted. Sensory: Intact bilaterally all 4 extremities. Reflexes: DTR's intact bilaterally.. Hematologic/Lymphatic: No ecchymosis, no lymphadenopathy.
[2021-08-04 20:42] LABS: Abs Immature Grans 0.02 10^3/uL (0.0-0.06); Absolute Basophil Count 0.07 10^3/uL (0.0-0.2); Absolute Eosinophil Count 0.44 10^3/uL (0.0-0.7); Absolute Lymphocyte Count 1.28 10^3/uL (1.2-3.4); Absolute Monocyte Count 0.61 10^3/uL (0.1-0.8); Absolute Neutrophil Count 4.29 10^3/uL (1.2-6.7); Eosinophils % 6.6; HCT 41.3 % (36.0-46.0); HGB 13.1 g/dL (11.2-15.7); Immature Grans % 0.3; Lymphocytes % 19.1; MCH 31.1 pg (27.0-33.0); MCHC 31.7 % (32.0-36.0); MCV 98.1 fL (80-95); MPV 10.9 fL (8.0-11.0); Monocytes % 9.1; Neutrophils % 63.9; Nucleated RBC 0 %; Platelet Count 186 10^3/uL (130-400); RBC 4.21 10^6/uL (3.93-5.22); RDW 12.3 % (11.7-14.6); RDW-SD 44.6 fL; WBC 6.71 10^3/uL (4.4-10.8)
[2021-08-04] MEDS: Albuterol/Ipratropium 3 ML UPD VIAL UPD (20:42)
[2021-08-04] MEDS: methylPREDNISolone SUCC 125 MG VIAL IVP (20:42)
[2021-08-04 21:00] LABS: ALT 21 U/L (14-59); AST 18 U/L (15-37); Albumin 3.7 g/dL (3.4-5.0); Alkaline Phosphatase 114 U/L (46-116); Anion Gap 9.1 mmol/L (3-11); BUN 17 mg/dL (7-18); Bilirubin, Total 0.4 mg/dL (0.2-1.0); CO2 28.9 mmol/L (21.0-32.0); Calcium 9.1 mg/dL (8.5-10.1); Chloride 105 mmol/L (98-107); Estimated GFR 54.66 (mL/min/1.73m2); Glucose 93 mg/dL (74-106); NT-proBNP 1558 pg/mL (<300); Potassium 4.1 mmol/L (3.5-5.1); Sodium 143 mmol/L (136-145); Total Protein 7.2 g/dL (6.4-8.2); Troponin I < 50 ng/L (<or=60)
--- NOTE | 2021-08-04 21:00 | DI.CT_ITS ---
Exam(s) CT CHEST PE CTA EXAM: CT CHEST PE CTA CLINICAL HISTORY: SOB, Elevated D-dimer. TECHNIQUE: Imaging Protocol: Axial CT angiography was performed with multi-slice acquisition and mu lti-planar and/or 3D reconstructions. CONTRAST MATERIAL: Intravenous: Omnipaque 350 Contrast volume:64 ml COMPARISON: CT CT ABDOMEN PELVIS W from 07/04/2021 FINDINGS: Pulmonary Arteries: No evidence of filling defect to suggest pulmonary emboli. Tracheobronchial tree: Patent where visualized. Mediastinum and Shana: No dominant adenopathy or fluid collection. Pulmonary parenchyma: No consolidation or dominant measurable mass. Atelectasis left lung base. Resp iratory motion. No acute infiltrate. Pleura: No effusion or pneumothorax. Heart: The heart is dilated, particularly left atrium and left ventricle.. There has been previous l eft ventricular wall aneurysm repair. Appearance is unchanged. Prior CABG. Aorta: Thoracic aorta non-dilated. No aneurysm. No dissection. Moderate to severe mural calcificat ion. Upper abdomen: Large nonobstructed hiatal hernia containing stomach, pancreas and portions of mesent cahse. Unchanged in appearance. Bones: Degenerative changes greatest in the lower thoracic spine. IMPRESSION: No evidence of pulmonary embolism or other acute abnormality.. RADIATION DOSE DELIVERED: 321.06mGy.cm Total DLP DATA REPOSITORY: All CT scans at this facility are submitted to the National Radiology Data Registry (NRDR) Dose Index Registry (DIR) with the [employer] (ACR). RADIATION OPTIMIZATION: All CT scans at this facility use at least one of these dose optimization te chniques: automated exposure control; mA and/or kV adjustment per patient size (includes targeted exa ms where dose is matched to clinical indication); or iterative reconstruction.
[2021-08-04 21:07] LABS: D-Dimer 781 ng/mlFEU (<500)
--- NOTE | 2021-08-04 21:29 | DI.VRAD_ITS ---
PROCEDURE INFORMATION: Exam: XR Chest Exam date and time: 08/04/2021 20:29 Age: 71 years old Clinical indication: Shortness of breath; Prior surgery; Surgery date: 6+ months; Surgery type: Cabg x3, repair of aneurysm of heart; Patient HX: SOB, ; additional info: Copd TECHNIQUE: Imaging protocol: XR of the chest. Views: 1 view. COMPARISON: CR CHEST 2 VIEWS PA,LAT 03/12/2017 09:36 FINDINGS: Lungs: Probable compressive atelectasis in the right lung base. Pleural spaces: No pleural effusion. No pneumothorax. Heart/Mediastinum: Similar mild cardiomegaly without vascular congestion. Click CABG large hiatal hernia, similar. Bones/joints: Median sternotomy wires. No displaced fracture. IMPRESSION: 1. No acute findings. 2. Chronic findings as described. Dictated and Authenticated by: Nuris Nguyen MD. Ordering:ANTHONY Marquez MD
[2021-08-04] MEDS: Omnipaque 350 MG/ML 100 ML BTL IJ (21:33)
[2021-08-04] MEDS: Normal Saline Flush 10 ML SYR IVP (21:35)
[2021-08-04 21:38] LABS: Source Nasal/Nares
--- NOTE | 2021-08-04 21:54 | DI.VRAD_ITS ---
PROCEDURE INFORMATION: Exam: CTA Chest With Contrast Exam date and time: 08/04/2021 21:14 Age: 71 years old Clinical indication: Abnormal findings; Abnormal diagnostic tests; Shortness of breath; Prior surgery; Surgery date: 6+ months; Surgery type: Cabg x 3, repair of heart aneurysm; Patient HX: SOB, elevated d-dimer; Additional info: Copd TECHNIQUE: Imaging protocol: Computed tomographic angiography of the chest with contrast. 3D rendering (Not supervised by radiologist): MIP and/or 3D reconstructed images were created by the technologist. Radiation optimization: All CT scans at this facility use at least one of these dose optimization techniques: automated exposure control; mA and/or kV adjustment per patient size (includes targeted exams where dose is matched to clinical indication); or iterative reconstruction. Contrast material: OMNIPAQUE 350; Contrast volume: 64 ml; Contrast route: INTRAVENOUS (IV); COMPARISON: CR CHEST 2 VIEWS PA,LAT 03/12/2017 09:36 FINDINGS: Pulmonary arteries: No pulmonary emboli. Aorta: No aortic aneurysm. No aortic dissection. Lungs: Mild compressive atelectasis in the lung bases. No evidence of pulmonary infarct or pneumonia. Pleural spaces: No pneumothorax. No pleural effusion. Heart: CABG. Mild cardiomegaly. 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 Lymph nodes: No enlarged lymph nodes. Stomach and bowel: Large hiatal hernia containing stomach, mesentery, pancreas. Bones/joints: Median sternotomy wires. Exaggerated thoracic kyphosis. Degenerative changes in the spine. No acute fracture or subluxation. Soft tissues: No suspicious lesions. IMPRESSION: 1. No pulmonary emboli are seen. 2. Incidental findings as described. Dictated and Authenticated by: Nuris Nguyen MD. Ordering:ANTHONY Marquez MD
[2021-08-05 11:50] LABS: COVID-19 PCR Negative (Negative)
== END 2021-08-04 22:52 | disposition home or self-care (01) ==
PROVIDERS: Emergency Provider Registered Nurse Emergency; PCP Family Medicine
DX: R06.02 Shortness of breath (principal); J44.1 Chronic obstructive pulmonary disease with (acute) exacerbation
CPT/HCPCS: 36415; 71275; 80053; 87635; 93005; 94640; 96374; 99284; 99285; U0005; 71045; 83735; 83880; 84484; 85025; 85379; 93010; J2930; J3490; J7620

== ENCOUNTER 2021-08-20 01:50 | Outpatient (CLI) | payer MEDICARE, BC, SELFPAY ==
--- NOTE | 2021-08-20 | DI.US_ITS ---
Exam(s) MG MAMMO SCREEN CALL BACK UNI US BREAST RT LIMITED EXAM: MG MAMMO SCREEN CALL BACK UNI and U/S breast RT limited CLINICAL HISTORY: ASYMMETRIC DENSITY-POSSIBLE NODULE. TECHNIQUE: Craniocaudal and mediolateral oblique Full Field Digital Mammography views of the right b reast with Computer Aided Diagnosis followed by Tomosynthesis and right breast ultrasound. COMPARISON: Comparison with prior examinations. FINDINGS: Mammography/Tomosynthesis: Masses/Architectural Distortion: None seen. Microcalcifictions: No suspicious pleomorphic-type are seen. Skin Thickening/Nipple Retraction: None. Limited right breast US: Echotexture: Normal appearance of the glandular tissue. Shadowing: No suspicious foci. Cyst: None. Solid lesions: None seen. Ductal dilation: None. IMPRESSION: 1. No evidence of malignancy is noted. 2. Unless there is more urgent need, follow-up screening mammography is recommended, as per [employer] guidelines. 3. The findings were discussed with the patient on the date of the examination. BI-RADS Category 1 - Negative Breast Density - Category B - Scattered areas of fibroglandular density Breast density Category C or D implies that the patient has dense breast tissue. Dense breast tissue can make it harder to find cancer on a mammogram. Dense breast tissue is also associated with an incr eased risk of breast cancer. This information about the result of the mammogram report was provided to the patient to raise their awareness. Use this report when you speak with the patient about their risks for breast cancer, which includes their family history. At that time, you may recommend additional screening tests (Ultrasoun d or MRI) as these tests may add significant information. A negative radiographic report should not delay biopsy if a dominant or clinically suspicious mass is present. Up to ten percent of cancers are not identified on mammography. A negative report may reinforce clinical impression. Adenosis and dense breasts may obscure an underlying neoplasm. False positive reports average 6 to 10%. Patient will receive a letter notifying them of these results.
== END 2021-08-20 02:10 ==
PROVIDERS: PCP Family Medicine; Visit Provider Family Medicine
DX: Z12.31 Encounter for screening mammogram for malignant neoplasm of breast (principal); R92.8 Other abnormal and inconclusive findings on diagnostic imaging of breast; N64.59 Other signs and symptoms in breast
CPT/HCPCS: 76642; 77063; 77067

== ENCOUNTER 2021-10-23 19:24 | Outpatient (REF) | payer MEDICARE, BC, SELFPAY | END 2021-10-23 19:25 | disposition home or self-care (01) | LOC: LBN 19:24 | PROVIDERS: PCP Family Medicine; Visit Provider Nurse Practitioner Family | DX: R39.15 Urgency of urination (principal) | CPT/HCPCS: 87077; 87086; 87186 ==

== ENCOUNTER → 2021-10-28 13:39 | Outpatient (BNVA) | payer MEDICARE, BC, SELFPAY | PROVIDERS: PCP Family Medicine; Referring Provider Family Medicine; Visit Provider Urology | DX: N39.0 Urinary tract infection, site not specified (principal) | CPT/HCPCS: 99215 ==

== ENCOUNTER → 2021-10-29 18:53 | Outpatient (CLI) | payer MEDICARE, BC, SELFPAY ==
--- NOTE | 2021-10-29 11:02 | DI.RAD_ITS ---
Exam(s) XR CHEST 2V PA LATERAL EXAM: XR CHEST 2V PA LATERAL CLINICAL HISTORY: r/o pna, cough--R05.9 TECHNIQUE: 2D digital imaging was performed. COMPARISON: CR,XR XR PORTABLE CHEST AP from 08/04/[address] CHEST PE CTA from 08/04/2021 FINDINGS: Large hiatal hernia, with the majority of the stomach above the diaphragm with air-fluid level. This partially obscures the cardiac silhouette. The lungs appear clear where visualized. Patient is sta tus post CABG. IMPRESSION: Large hiatal hernia. No acute abnormality. DATA REPOSITORY: RADIATION DOSE DELIVERED:
== END ==
PROVIDERS: PCP Family Medicine; Visit Provider Nurse Practitioner Family
DX: R05.8 Other specified cough (principal); K44.9 Diaphragmatic hernia without obstruction or gangrene; Z95.1 Presence of aortocoronary bypass graft
CPT/HCPCS: 71046

== ENCOUNTER 2022-06-24 09:54 | Outpatient (CLI) | payer MEDICARE, BC, SELFPAY ==
[2022-06-24 13:44] LABS: CREATININE 0.9 mg/dL (0.55-1.02); Calculated LDL 89 mg/dL (<100); Cholesterol 168 mg/dL (<200); Estimated GFR 67.92 (mL/min/1.73m2); HDL Cholesterol 66 mg/dL (40-60); Potassium 4.3 mmol/L (3.5-5.1); Triglyceride 65 mg/dL (<150)
[2022-06-24 14:15] LABS: NT-proBNP 1287 pg/mL (<300)
== END 2022-06-24 09:55 | disposition home or self-care (01) ==
LOC: LOS 09:55
PROVIDERS: PCP Family Medicine; Referring Provider Family Medicine; Visit Provider Family Medicine
DX: I10 Essential (primary) hypertension (principal); J44.1 Chronic obstructive pulmonary disease with (acute) exacerbation; E78.5 Hyperlipidemia, unspecified; R06.89 Other abnormalities of breathing
CPT/HCPCS: 36415; 80061; 82565; 83880; 84132

== ENCOUNTER → 2023-04-17 09:51 | Outpatient (CLI) | payer MEDICARE, BC, SELFPAY ==
--- NOTE | 2023-04-17 09:00 | DI.RAD_ITS ---
Exam(s) XR CHEST 2V PA LATERAL EXAM: XR CHEST 2V PA LATERAL CLINICAL HISTORY: chest congestions, R09.89 TECHNIQUE: 2D digital imaging was performed of the chest. Two images were obtained. PA and lateral views were obtained. COMPARISON: CR XR CHEST 2V PA LATERAL from 10/29/2021 FINDINGS: MEDIASTINUM: There is a large hiatal hernia again seen. HEART: Status post CABG. PULMONARY VASCULATURE: Normal. LUNGS: Clear. PLEURAL SPACE: No pleural effusion or pneumothorax. BONE:Within normal limits for the patient's age. OTHER FINDINGS:Normal. IMPRESSION: 1. No acute pulmonary findings. 2. Large hiatal hernia. DATA REPOSITORY: RADIATION DOSE DELIVERED:
== END ==
PROVIDERS: PCP Family Medicine; Visit Provider Family Medicine
DX: R09.89 Other specified symptoms and signs involving the circulatory and respiratory systems (principal); K44.9 Diaphragmatic hernia without obstruction or gangrene
CPT/HCPCS: 36415; 71046; 83880

== ENCOUNTER 2023-04-17 10:26 | Outpatient (CLI) | payer MEDICARE, BC, SELFPAY ==
[2023-04-17 09:58] LABS: NT-proBNP 1459 pg/mL (<300)
== END 2023-04-17 10:27 | disposition home or self-care (01) ==
LOC: LBO 10:26
PROVIDERS: PCP Family Medicine; Visit Provider Family Medicine
DX: I50.9 Heart failure, unspecified (principal); R09.89 Other specified symptoms and signs involving the circulatory and respiratory systems
CPT/HCPCS: 36415; 83880

== ENCOUNTER → 2023-04-29 01:57 | Outpatient (CLI) | payer MEDICARE, BC, SELFPAY ==
--- NOTE | 2023-04-29 09:23 | DI.US_ITS ---
APPROVED REPORT EXAM: Comprehensive 2D, Doppler, and color-flow Echocardiogram Patient Location: [facility] Supervisor: Antionette Barrett RDCS (AE) Indications: New orthopnea, elevated BNP, Heart failure, H/O Pseudoaneurysm lateral wall with repair. Other Information Study Quality: Adequate Conclusion Normal left ventricular wall thickness and chamber size. Ejection fraction is 40 to 45%. There are wall motion abnormalities involving the inferior and posterior lateral segments. There is stage I di astolic dysfunction which is normal for patient age Normal right ventricular size and systolic function Left atrium is mildly enlarged. Right atrial size is normal Aortic valve is mildly sclerotic and trileaflet with mild regurgitation Mildly thickened mitral leaflets. There is moderate eccentric mitral regurgitation Normal tricuspid valve with mild to moderate regurgitation. Estimated right ventricular systolic pre ssure is 34 mmHg Mildly dilated ascending aorta 3.51 cm Wall motion Left Ventricle The left ventricle is normal size. Left ventricular systolic function is mild to moderately decrease d. There is normal left ventricular wall thickness. Regional wall motion abnormalities are noted. His tory of lateral wall pseudoaneurysm repair. Left ventricular filling pattern is normal for age. There is no ventricular septal defect visualized. LVEF is 40-45%. Right Ventricle Right ventricle is grossly normal in size. Right ventricular systolic function is grossly normal. Atria T Left atrium is mildly dilated. The right atrium size is normal. The interatrial septum is intact wi th no evidence for an atrial septal defect. Aortic Valve The Aortic valve is mildly sclerotic. Aortic valve is trileaflet. There is no aortic valvular stenosi s. Mild aortic regurgitation. Mitral Valve Mitral valve leaflets are mildly thickened. The mitral valve is thickened but opens well. No evidence of mitral valve stenosis. Moderate mitral regurgitation. Mitral regurgitation jet is eccentrically d irected. Tricuspid Valve The tricuspid valve is normal in structure. There is no tricuspid valve stenosis. Mild to moderate tr icuspid regurgitation. The RVSP is 34.0mmHg. Pulmonic Valve The pulmonary valve is normal in structure. There is no pulmonic valvular stenosis. Trace pulmonic re gurgitation. Great Vessels The aortic root is normal in size. The ascending aorta is mildly dilated. Aortic arch is not well vis ualized. IVC is normal in size and collapses >50% with inspiration. Pericardium There is no pericardial effusion. 2D Dimensions IVSD d PLAX 0.93 cm F: 0.6-1.0 Ao Root d 2.78 cm F: 2.7 - 3.3 LVPW d PLAX 0.82 cm F: 0.6 - 1.0 Ao Asc Diam d 3.51 cm F: 2.3 - 3.1 LVID d PLAX 4.88 cm F: 3.8 - 5.2 LVDs 4.45 cm F: 2.2 - 3.5 LV EF Teichholz 19.4 % FS 8.79 % LV EDV (Teich) 111.8 mL LV ESV (Teich) 90.1 mL M-Mode TAPSE 1.12 cm (M/F) >1.7 Auto EF LV EDV A4C 136.2 mL LV EDV A2C 108.1 mL LV EDV BP 120.8 mL LV ESV A4C 80.1 mL LV ESV A2C 65.0 mL LV ESV BP 71.7 mL LVEF(%) A4C 41.1 % LVEF(%) A2C 39.8 % LVEF(%) BP 40.6 % LV SV A4C 56.0 ml LV SV A2C 43.1 ml LV SV BP 49.0 ml LV CO A4C 3.6 L/min LV CO A2C 2.7 L/min LV CO BP 3.1 L/min HR A4C 63.95 BPM HR A2C 62.83 BPM LV EDV Index (BP) LV Strain Long Pk Overal Avg (s) 9.64 LA Volume LA Length A4C 5.2 cm LA Length A2C 4.9 cm LA Area A4C s 12.76 cm2 LA Area A2C s 15.61 cm2 LA Vol A4C A-L 26.44 mL LA Vol A2C A-L 42.11 mL LA Vol Biplane A-L 34.4 mL LA Vol/BSA A4C A-L LA Vol/BSA A2C A-L LA Vol/BSA BP A-L 20.7 mL/m2 LA Vol A4C MOD 25.1 mL LA Vol A2C MOD 39.9 mL LA Vol BP MOD 32.5 mL RA Volume RA Area A4C 10.7 cm2 RA ESV A4C (A-L) 20.5mL RA Vol/BSA A4C A-L RA Length A4C 4.8 cm RA ESV A4C (MOD) 19.6mL LV Diastology MV E' medial 0.040 (>0.07 m/s) MV E Vmax 0.71 (0.4-1.3 m/s) MV E/E' MED 17.68 (<14) MV A Vmax 0.75 (0.4-1.3 m/s) MV E' lateral 0.072 (>0.1 m/s) E/A Ratio 0.9 MV E/E' LAT 9.87 (<14) MV E' Average 0.056 m/s MV E/E'(average) 12.66 Aortic Valve AoV Vmax 1.20 m/s LVOT Vmax 0.98 m/s AoV Peak Grad 44.0 mmHg LVOT Peak Grad 3.8 mmHg AoV Area (Vmax) 2.28 cm2 LVOT VTI 0.215 m AoV VTI 0.276 m LVOT Mean Grad 2.1 mmHg AoV Mean Aaron. 0.85 m/s LVOT SV 60.04 mL AoV Mean Grad 3.3 mmHg LVOT Diam s 1.85 cm AoV Area (VTI) 2.18 cm2 AV Regurg Peak Gr. 82.30 mmHg Velocity Ratio 0.82 AR Decel Bullitt 2.9m/sec2 AR DT 1584 msec AR PHT 459 msec AR Vmax 4.54 m/s Mitral Valve MV DT 118 (160-240 msec) MV Vmax TIPS 0.72 m/s MV Mean Grad 1.2 (<2mmHg) MV VTI 0.238 m Pulmonary Valve PV Vmax 0.87 (0.5-1.5 m/s) RVOT Vmax 0.68 m/s PV Peak Grad 3.0 mmHg RVOT Peak Gr. 1.8 mmHg PV Mean Aaron 0.56 m/s RVOT VTI 0.127 m PV Mean Grad 1.5 mmHg RVOT Mean Gr. 0.9 mmHg Tricuspid Valve RA Pressure 3.00 mmHg TR Vmax 2.79 m/s TV S' 0.10 m/s TR Peak Grad 31.0 mmHg RVSP (TR) 34.0 mmHg
== END ==
PROVIDERS: PCP Family Medicine; Visit Provider Family Medicine
DX: I50.9 Heart failure, unspecified (principal); R06.01 Orthopnea
CPT/HCPCS: 93306

== ENCOUNTER 2023-05-01 09:39 | Emergency (ER) | payer MEDICARE, BC, SELFPAY ==
[2023-05-01 09:46] VITALS: BP 145/85; PULSE 75; RESP 16; TEMP 36.4; O2SAT 99
--- NOTE | 2023-05-01 10:00 | DI.CT_ITS ---
Exam(s) CT ABDOMEN PELVIS W EXAM: CT ABDOMEN PELVIS W CLINICAL HISTORY: LLQ pain 2 weeks. TECHNIQUE: Imaging Protocol: Axial computed tomography images with coronal and sagittal reformatted images were created and reviewed CONTRAST MATERIAL: Intravenous: Omnipaque-350 100cc Oral: None COMPARISON: CT CT ABDOMEN PELVIS W from 07/04/[address] CHEST PE CTA from 08/04/2021 CR XR CHEST 2V PA LATERAL from 04/17/2023 FINDINGS: VISUALIZED LUNG BASES: No nodules nor pleural effusions evident. ABDOMEN: Again noted is a diaphragm hernia in the retro-right pericardiac region with upward herniation of the entire stomach in the chest again noted as well as some small bowel loops and part of the pancreas, similar to previous study. Lower down there is a small right para umbilical anterior abdominal hernia which contains fat and no bowel loops. This hernia sac measures 1.8 by 1.0 cm. There are no hernias below the level of the um bilicus. LIVER: There are no focal hepatic lesions evident. No dilated intrahepatic ducts. GALLBLADDER/BILIARY: No obvious gallbladder pathology. CBD is not dilated. PANCREAS: Pancreatic head and uncinate process are within the hernia within the chest. No evidence o f pancreatic mass nor dilatation of the pancreatic duct. No peripancreatic fluid. SPLEEN: Spleen is not enlarged. No obvious intrasplenic lesions. Splenic and portal veins are paten t. ADRENALS: There are no significant adrenal masses. KIDNEYS:No cysts evident. No solid renal masses. No calculi nor hydronephrosis.. ABDOMINAL AORTA: Abdominal aorta and iliac arteries are heavily calcified but not enlarged. LYMPH NODES:There is no retroperitoneal nor paraaortic adenopathy. ABDOMINAL WALL: As above GI: There is no evidence of bowel obstruction, free air, nor abscess. PELVIS: GI: No evidence of appendicitis.Redundant sigmoid. No evidence of diverticulitis. LYMPH NODES: There is no intrapelvic nor inguinal adenopathy. REPRODUCTIVE: Uterus and adnexa region age-appropriate URINARY BLADDER: Collapsed OSSEOUS: No fractures and no significant osseous lesions. Degenerative anterolisthesis L4 upon L5. Advanced disc space narrowing L5-S1. IMPRESSION: 1. Again noted is a large diaphragm hernia with upward herniation of the entire stomach, some small b owel loops as well as part of the pancreas into the chest, unchanged from the prior study. No eviden ce of bowel obstruction. 2. Redundant sigmoid. No evidence of diverticulitis. 3. Small right of center anterior abdominal wall fat only containing hernia, slightly above the umbil icus level and unchanged from 07/04/2021. 4. No obvious acute findings in the abdomen and pelvis. RADIATION DOSE DELIVERED: Total DLP DATA REPOSITORY: All CT scans at this facility are submitted to the National Radiology Data Registry (NRDR) Dose Index Registry (DIR) with the [employer] (ACR). RADIATION OPTIMIZATION: All CT scans at this facility use at least one of these dose optimization te chniques: automated exposure control; mA and/or kV adjustment per patient size (includes targeted exa ms where dose is matched to clinical indication); or iterative reconstruction.
--- NOTE | 2023-05-01 10:17 | ED.GENADUL_ITS ---
Discharge Plan Disposition Patient Disposition: Home Condition: Stable Discharge Details Clinical Impression: Anterolisthesis of lumbar spine, Back pain, Diaphragmatic hernia, Ventral hernia, Abdominal pain Primary Care Provider: Godfrey Durand ED Provider: Billy Mcgee Home Meds and New Rx's Prescriptions: Continued losartan 50 mg tablet 75 mg PO DAILY Qty: 135 3RF Rx Instructions: dose increase 07/03/21 metoprolol succinate 100 mg tablet extended release 24 hr 100 mg PO DAILY Qty: 90 3RF omeprazole 20 mg capsule,delayed release(DR/EC) 20 mg PO DAILY Qty: 90 3RF (DME) nebulizer and compressor Device See Rx Instructions .Route Qty: 1 0RF Rx Instructions: As directed aspirin [Aspir-81] 81 MG tablet,delayed release (DR/EC) 81 mg PO DAILY Qty: 100 ipratropium-albuterol 0.5 mg-3 mg(2.5 mg base)/3 mL solution for nebulization 3 ml inhalation Q4H PRN (Reason: shortness of breath or wheezing) Qty: 90 3RF Rx Instructions: Use every 4-6 hours as need for SOB or wheezing imipramine HCl 50 mg tablet 50 mg PO DAILY Qty: 90 3RF simvastatin 40 mg tablet 40 mg PO DAILY Qty: 90 3RF clonazepam 0.5 mg tablet 0.5 mg PO BID PRN (Reason: anxiety) Qty: 10 0RF albuterol sulfate [Ventolin HFA] 90 mcg/actuation HFA aerosol inhaler 2 puff inhalation QID PRN (Reason: shortness of breath or wheezing) Qty: 8.5 2RF (DME) nebulizer and compressor Device See Rx Instructions .Route Qty: 1 0RF Rx Instructions: As directed Discharge Instructions Instructions: Abdominal Pain (ED), Back Pain (ED) Additional Instructions: Please use [id number] lidocaine patches. Dose according to label. Please contact your primary care physician to arrange follow-up. Return to the ER immediately for any worsening or new concerning symptoms. Referrals: Godfrey Durand MD [Primary Care Provider] - Medical Decision Making 72-year-old female with prior history of diverticulitis remotely, here with left lower quadrant abdominal and back pain. Patient does have focal tenderness in her left lower quadrant. No peritoneal findings. Labs reviewed: No leukocytosis noted. Normal lipase. CT of the abdomen pelvis was interpreted by radiology: 1. Again noted is a large diaphragm hernia with upward herniation of the entire stomach, some small bowel loops as well as part of the pancreas into the chest, unchanged from the prior study. No evidence of bowel obstruction. 2. Redundant sigmoid. No evidence of diverticulitis. 3. Small right of center anterior abdominal wall fat only containing hernia, slightly above the umbilicus level and unchanged from 07/04/2021. 4. No obvious acute findings in the abdomen and pelvis. Urinalysis reviewed and nondiagnostic. Not consistent with UTI. Suspect symptoms may be related to nerve root compression. Lidoderm patch was placed. All results were discussed with the patient. Plan for discharge with outpatient follow-up and reassessment next week. Usual customary discharge instructions reviewed the patient. Lab Data Lab results reviewed: Yes I reviewed the patient's lab results. Labs: Laboratory Tests Range/Units 05/01/23 05/01/23 10:23 12:10 WBC (4.4-10.8) 10^3/uL 7.06 RBC (3.93-5.22) 10^6/uL 4.19 Hgb (11.2-15.7) g/dL 13.3 Hct (36.0-46.0) % 40.3 MCV (80-95) fL 96 H MCH (27.0-33.0) pg 31.7 MCHC (32.0-36.0) % 33.0 RDW (11.7-14.6) % 12.2 Plt Count (130-400) 10^3/uL 203 MPV (8.0-11.0) fL 10.3 Immature Gran % 0.1 Neutrophils % 73.4 Lymphocytes % 11.5 Monocytes % 4.4 Eosinophils % 9.8 Basophils % 0.8 Nucleated RBC % (0.0-0.3) % 0.0 Absolute Neutrophils (1.2-6.7) 10^3/uL 5.18 Absolute Lymphocytes (1.2-3.4) 10^3/uL 0.81 L Absolute Monocytes (0.1-0.8) 10^3/uL 0.31 Absolute Eosinophils (0.0-0.7) 10^3/uL 0.69 Absolute Basophils (0.0-0.2) 10^3/uL 0.06 Sodium (136-145) mmol/L 135 L Potassium (3.5-5.1) mmol/L 5.0 Chloride (98-107) mmol/L 101 Carbon Dioxide (21.0-32.0) mmol/L 29.1 Anion Gap (3-11) mmol/L 4.9 BUN (7-18) mg/dL 10 Creatinine (0.55-1.02) mg/dL 1.1 H Est GFR (CKD-EPI 2020) (mL/min/1.73m2) 53.39 Glucose (74-106) mg/dL 107 H Calcium (8.5-10.1) mg/dL 9.3 Total Bilirubin (0.2-1.0) mg/dL 0.5 AST (15-37) U/L 21 ALT (14-59) U/L 18 Alkaline Phosphatase (46-116) U/L 135 H Total Protein (6.4-8.2) g/dL 7.5 Albumin (3.4-5.0) g/dL 3.8 Lipase (16-77) U/L 25 Urine Color (Yellow) Yellow Urine Clarity (Clear) Clear Urine pH (5-8) 6.5 Ur Specific [place] (1.005-1.025) <= 1.005 Urine Protein (Negative) mg/dL Negative Urine Ketones (Negative) mg/dL Negative Urine Blood (Negative) Trace-intact H Urine Nitrite (Negative) Negative Urine Bilirubin (Negative) Negative Urine Urobilinogen (Up to 0.2) mg/dL 0.2 Ur Leukocyte Esterase (Negative) Negative Urine RBC (0-2) HPF 0-2 Urine WBC (0-5) HPF Negative Ur Epithelial Cells (Negative) HPF Few Urine Crystals (Negative) HPF Negative Urine Bacteria (Negative) HPF Negative Urine Casts (Negative) LPF Negative Urine Mucus (Negative) Negative Ur Culture Indicated? No Urine Glucose (Negative) mg/dL Negative HPI General Mode of arrival: ambulatory . Date/Time Provider Initiated Documentation: 05/01/23 09:48 . Limitations to Documentation: no limitations . Information obtained by: patient . HPI Narrative: 72-year-old female with history of remote diverticulitis, presents with chief complaint of abdominal pain. Patient notes left lower abdominal pain and left lower back pain that is been persistent for the past 2 weeks. She has decreased appetite. Soft stool. No bloody stool. No fevers. Related Data Home Medications Medication Instructions Recorded Confirmed aspirin 81 mg tablet,delayed 81 mg PO DAILY #100 tab-caps 05/30/15 05/01/23 release (Aspir-) nebulizer and compressor #1 ea 08/04/21 05/01/23 ipratropium 0.5 mg-albuterol 3 mg 3 ml inhalation Q4H PRN shortness 08/06/21 05/01/23 (2.5 mg base)/3 mL nebulization of breath or wheezing #90 mL soln nebulizer and compressor #1 ea 08/06/21 05/01/23 losartan 50 mg tablet 75 mg (1.5 x 50 mg) PO DAILY #135 06/24/22 05/01/23 tab-caps metoprolol succinate 100 mg 100 mg PO DAILY #90 tab-caps 06/24/22 05/01/23 tablet,extended release 24 hr omeprazole 20 mg capsule,delayed 20 mg PO DAILY #90 caps 06/24/22 05/01/23 release imipramine HCl 50 mg tablet 50 mg PO DAILY #90 tab-caps 12/26/22 05/01/23 simvastatin 40 mg tablet 40 mg PO DAILY #90 tab-caps 01/18/23 05/01/23 clonazepam 0.5 mg tablet 0.5 mg PO BID PRN anxiety #10 03/09/23 05/01/23 tab-caps albuterol sulfate 90 mcg/actuation 2 puff inhalation QID PRN 04/07/23 05/01/23 aerosol inhaler (Ventolin HFA) shortness of breath or wheezing #8.5 grams Previous Rx's Medication Instructions Recorded nebulizer and compressor #1 ea 08/04/21 ipratropium 0.5 mg-albuterol 3 mg 3 ml inhalation Q4H PRN shortness 08/06/21 (2.5 mg base)/3 mL nebulization of breath or wheezing #90 mL soln nebulizer and compressor #1 ea 08/06/21 losartan 50 mg tablet 75 mg (1.5 x 50 mg) PO DAILY #135 06/24/22 tab-caps metoprolol succinate 100 mg 100 mg PO DAILY #90 tab-caps 06/24/22 tablet,extended release 24 hr omeprazole 20 mg capsule,delayed 20 mg PO DAILY #90 caps 06/24/22 release imipramine HCl 50 mg tablet 50 mg PO DAILY #90 tab-caps 12/26/22 simvastatin 40 mg tablet 40 mg PO DAILY #90 tab-caps 01/18/23 clonazepam 0.5 mg tablet 0.5 mg PO BID PRN anxiety #10 03/09/23 tab-caps albuterol sulfate 90 mcg/actuation 2 puff inhalation QID PRN 04/07/23 aerosol inhaler (Ventolin HFA) shortness of breath or wheezing #8.5 grams Allergies Allergy/AdvReac Type Severity Reaction Status Date / Time nitrofurantoin AdvReac Intermediate Nausea Verified 05/01/23 09:49 hydrochlorothiazide AdvReac Verified 05/01/23 09:49 lisinopril AdvReac Verified 05/01/23 09:49 General Stated Complaint: Abd Prob SHANICE: 3 Review of Systems All systems reviewed & are unremarkable except as noted in HPI and below Constitutional Constitutional: Denies fever(s) Gastrointestinal Gastrointestinal: Reports as per HPI PFSH All Active Problems Abdominal pain (Acute) Ventral hernia (Acute) Diaphragmatic hernia (Acute) Back pain (Acute) Anterolisthesis of lumbar spine (Acute) Orthopnea (Acute) Diverticulitis (Chronic) Recurrent UTI (urinary tract infection) (Acute) Anxiety disorder (Acute) Hiatal hernia (Chronic) Allergic sinusitis (Acute) Epigastric pain (Acute) Chronic GERD (Acute 12/26/15) Depressive disorder (Acute 11/01/12) Coronary disease (Chronic) a. Presented April 2010 w/ burning between her shoulder blades & found to have an ST elevation FL. b. Status post CABG x3 April 2010. c. 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 d. R/O FL episodes x2 August 2010. e. Cath at time showed significant stenosis of left main, three-vessel coronary disease, patient left internal mammary artery gradt to LAD, but ob structive disease of the saphenous graft to ELISABETH, and RCA with decreased LB ejection fraction of 20%. Lateral wall pseudoaneurysm of the LV appears somewhat changed since 09/05/2010 w/ a separate anterior tract. Chronic obstructive pulmonary disease (COPD) (Chronic) a. A [id number] history of smoking. b. Quit 2008, but still puffs occasionally. -08/25/13 Hypercholesteremia (Chronic) a. On therapy. b. LDL 63. Memory loss (Chronic) mild Depression (Chronic) Hypertension (Chronic) Medical History Acute hemorrhoid (04/23/17) Constipation (04/23/17) History of tobacco use quit 2010 - after CABG; 40 packyr hx Family history of colorectal cancer in brother. anginal episode (08/25/13) a. Initial EKG no change. b. Initial troponin negative. c. Admitted to ICU for observation Surgical History Aneurysm of heart S/P SURGICAL REPAIR History of surgery a. CABG x3 2008. b. Aneurysm surgery 2008. Colonoscopy - MAC (10/09/17) Family History Mother , age 80 No problems noted. Father , age 89 Cancer Sister No problems noted. Sister No problems noted. Brother No problems noted. Brother No problems noted. Son No problems noted. Daughter No problems noted. Social History Smoking/Tobacco Use Status: Former Tobacco Use Smoking risk assessment performed?: Yes Alcohol Intake: never Drug use: Never Substance use type: does not use Caregiver/Support person: No Household members: none Communication Needs: None Pets and animals: Yes Pets and animals: cat(s) Sexually active: No Do you think of yourself as: decline to answer Current gender identity: decline to answer What is your relationship status?: How often do you talk on the phone with friends or family?: three or more times per week How often do you get together with friends or relatives?: once per week How often do you attend presybeterian or tenriism services?: decline to answer Do you belong to any clubs or organized social groups?: decline to answer Panel score (0-1 are the most socially isolated patients): 1 What type of physical activity do you participate in: walking Duration: 45-60 minutes/day Frequency: daily Justine/Anglican: None Special justine needs: No Seatbelt use: always Drive intox or ride w/intox tram driver: No Do you feel safe at home: Yes Do you feel safe in your relationship?: Yes Victim of physical abuse: No Victim of emotional abuse: No Victim of sexual abuse: No Would you like helpful sources: No Exam Const General: cooperative and no acute distress HENMT Mouth: moist mucous membranes Eyes Conjunctivae: normal conjunctivae Sclera: normal sclerae Resp Auscultation: clear to auscultation bilaterally, no rales, no rhonchi and no wheezes Cardio Rate: regular rate and not tachycardic Rhythm: regular rhythm GI Palpation: soft, not firm, no guarding, no masses, not rigid and tender in the LLQ; with no rebound tenderness Auscultation: normal bowel sounds Back/Spine/Pelvis Back: No erythema, No warmth and No ecchymosis Thoracic/Lumbar Spine: paraspinal tenderness (Left lower lumbar), No thoracic spinal tenderness and No lumbar spinal tenderness Skin General skin exam: no rashes or lesions noted Neuro General: patient alert, patient awake, patient oriented x3 and tone normal Extrem General: no edema Psych Appearance: grossly normal Mental Status: mental status grossly normal Course Vital Signs Vital signs: Vital Signs Temperature 36.4 C 05/01/23 09:46 Pulse 75 05/01/23 09:46 Respiratory Rate 16 05/01/23 09:46 Blood Pressure 145/85 H 05/01/23 09:46 Pulse Oximetry 99 05/01/23 09:46 Temperature 36.4 C 05/01/23 09:46 Temperature Source Skin 05/01/23 09:46 Pulse 75 05/01/23 09:46 Respiratory Rate 16 05/01/23 09:46 Respiratory Effort Normal, Non-Labored 05/01/23 09:48 Blood Pressure 145/85 H 05/01/23 09:46 Blood Pressure Position Sitting 05/01/23 09:46 Pulse Oximetry 99 05/01/23 09:46 Oxygen Delivery Method Room Air 05/01/23 09:46 Oxygen Flow Rate 0 05/01/23 09:46 Pain Level 8 05/01/23 09:54 Comment Pt states abdominal discomfort 05/01/23 09:54
[2023-05-01 10:35] LABS: Abs Immature Grans 0.01 10^3/uL (0.0-0.06); Absolute Basophil Count 0.06 10^3/uL (0.0-0.2); Absolute Eosinophil Count 0.69 10^3/uL (0.0-0.7); Absolute Lymphocyte Count 0.81 10^3/uL (1.2-3.4); Absolute Monocyte Count 0.31 10^3/uL (0.1-0.8); Absolute Neutrophil Count 5.18 10^3/uL (1.2-6.7); Basophils % 0.8; Eosinophils % 9.8; HCT 40.3 % (36.0-46.0); HGB 13.3 g/dL (11.2-15.7); Immature Grans % 0.1; Lymphocytes % 11.5; MCH 31.7 pg (27.0-33.0); MCV 96 fL (80-95); MPV 10.3 fL (8.0-11.0); Monocytes % 4.4; Neutrophils % 73.4; Platelet Count 203 10^3/uL (130-400); RBC 4.19 10^6/uL (3.93-5.22); RDW 12.2 % (11.7-14.6); RDW-SD 42.2 fL; WBC 7.06 10^3/uL (4.4-10.8)
[2023-05-01 10:44] LABS: ALT 18 U/L (14-59); AST 21 U/L (15-37); Albumin 3.8 g/dL (3.4-5.0); Alkaline Phosphatase 135 U/L (46-116); Anion Gap 4.9 mmol/L (3-11); BUN 10 mg/dL (7-18); Bilirubin, Total 0.5 mg/dL (0.2-1.0); CO2 29.1 mmol/L (21.0-32.0); CREATININE 1.1 mg/dL (0.55-1.02); Calcium 9.3 mg/dL (8.5-10.1); Chloride 101 mmol/L (98-107); Estimated GFR 53.39 (mL/min/1.73m2); Glucose 107 mg/dL (74-106); Lipase 25 U/L (16-77); Sodium 135 mmol/L (136-145); Total Protein 7.5 g/dL (6.4-8.2)
[2023-05-01] MEDS: Lidocaine 5% Patch 1 PATCH TP (12:14)
[2023-05-01 12:44] LABS: Bilirubin Negative (Negative); Blood Trace-intact (Negative); Clarity Clear (Clear); Glucose Negative (Negative); Ketones Negative (Negative); Leukocyte Esterase Negative (Negative); Nitrite Negative (Negative); Specific Gravity <= 1.005 (1.005-1.025); Urobilinogen 0.2 mg/dL (Up to 0.2); pH 6.5 (5-8)
[2023-05-01 12:58] LABS: Bacteria Negative HPF (Negative); C & S Indicated? No; Casts Negative LPF (Negative); Crystals Negative HPF (Negative); Epithelial Cells Few HPF (Negative); Mucus Negative (Negative); RBC 0-2 HPF (0-2); WBC Negative HPF (0-5)
--- NOTE | 2023-05-01 13:23 | NUR.NOTE ---
Nursing Note: PT needs follow up with PCP next week for abdominal pain. Rosalina, ED
== END 2023-05-01 13:46 | disposition home or self-care (01) ==
PROVIDERS: Emergency Provider Student in an Organized Health Care Education/Training Program; PCP Family Medicine
DX: R10.32 Left lower quadrant pain (principal); K44.9 Diaphragmatic hernia without obstruction or gangrene; K43.9 Ventral hernia without obstruction or gangrene; M43.16 Spondylolisthesis, lumbar region; I25.10 Atherosclerotic heart disease of native coronary artery without angina pectoris; J44.9 Chronic obstructive pulmonary disease, unspecified; I10 Essential (primary) hypertension; E78.00 Pure hypercholesterolemia, unspecified; Z79.82 Long term (current) use of aspirin; Z95.1 Presence of aortocoronary bypass graft; Z87.891 Personal history of nicotine dependence
CPT/HCPCS: 36415; 80053; 83690; 99285; 74177; 81003; 81015; 85025; 99284

== ENCOUNTER 2024-02-17 10:05 | Outpatient (CLI) | payer MEDICARE, BC, SELFPAY ==
--- NOTE | 2024-02-17 09:30 | DI.RAD_ITS ---
Exam(s) XR CHEST 2V PA LATERAL EXAM: XR CHEST 2V PA LATERAL CLINICAL HISTORY: R05.9 Cough unspecicifed, evaluate pathology. TECHNIQUE: 2D digital imaging was performed. COMPARISON: No exams were available for comparison FINDINGS: 2 views: There is sternotomy wires. Very large hiatal hernia is again noted. Indeed, prior CT scan of [facility] er 2022 reveals this to be a diaphragmatic hernia with upward herniation of the entire stomach into t he chest as well as some small bowel loops, as well as part of the pancreas. Heart size is normal. The mediastinum is not widened. No new lung infiltrates nor pleural effusions. No pulmonary edema. Some scarring in left lung base is again noted. IMPRESSION: No acute pulmonary findings.Sternotomy wires. Normal heart size. No CHF. Large hiatal hernia with contents as described above again noted. This appears similar size to 04/17 DATA REPOSITORY: RADIATION DOSE DELIVERED:
== END 2024-02-17 10:25 ==
LOC: DI 10:06
PROVIDERS: PCP Family Medicine; Visit Provider Nurse Practitioner Family
DX: R05.9 Cough, unspecified (principal)
CPT/HCPCS: 71046

== ENCOUNTER 2024-05-05 13:04 | Outpatient (CLI) | payer MEDICARE, BC, SELFPAY ==
--- NOTE | 2024-05-05 12:54 | DI.RAD_ITS ---
Exam(s) XR CERVICAL SPINE COMP 4-5V EXAM: XR CERVICAL SPINE COMP 4-5V CLINICAL HISTORY: evaluate pathology, cervical pain, M54.2 cervicalgia. TECHNIQUE: 2D digital imaging was performed. COMPARISON: No exams were available for comparison FINDINGS: Six views: There is no evidence fracture, listhesis, nor offset of the spinal laminar line. There is moderate-advanced disc space narrowing at C5-6 level. Also Luschka joint osteophytes at thi s level seen. Other disc spaces exhibit normal height. There is multilevel facet arthropathy. There are no cervical ribs. No osseous lesions. Incidentally noted is calcification within plaque at the level left carotid bifurcation. Sternotomy wires are also noted. IMPRESSION: Chronic degenerative disc disease at C5-6 level. Findings as above. DATA REPOSITORY: RADIATION DOSE DELIVERED:
== END 2024-05-05 13:24 ==
PROVIDERS: PCP Family Medicine; Visit Provider Nurse Practitioner Family
DX: M54.2 Cervicalgia (principal)
CPT/HCPCS: 72050

== ENCOUNTER 2024-08-04 13:03 | Outpatient (CLI) | payer MEDICARE, BC, SELFPAY ==
[2024-08-04 17:16] LABS: BUN 22 mg/dL (7-18); Calcium 8.9 mg/dL (8.5-10.1); Calculated LDL 70 mg/dL (<100); Chloride 106 mmol/L (98-107); Cholesterol 152 mg/dL (<200); Estimated GFR 59.12 (mL/min/1.73m2); Glucose 130 mg/dL (74-106); HDL Cholesterol 67 mg/dL (>or=50); Potassium 4.5 mmol/L (3.5-5.1); Sodium 142 mmol/L (136-145); Triglyceride 78 mg/dL (<150)
== END 2024-08-04 13:04 | disposition home or self-care (01) ==
PROVIDERS: PCP Family Medicine; Visit Provider Nurse Practitioner Family
DX: Z13.1 Encounter for screening for diabetes mellitus (principal); Z13.6 Encounter for screening for cardiovascular disorders
CPT/HCPCS: 36415; 80048; 80061

== ENCOUNTER 2025-02-20 16:43 | Outpatient (REF) | payer MEDICARE, BC, SELFPAY ==
[2025-02-20 17:10] LABS: Abs Immature Grans 0.04 10^3/uL (0.0-0.06); HCT 32.8 % (36.0-46.0); HGB 10.6 g/dL (11.2-15.7); Immature Grans % 0.5 %; MCH 30.7 pg (27.0-33.0); MCHC 32.3 % (32.0-36.0); MCV 95 fL (80-95); MPV 11.0 fL (8.0-11.0); Platelet Count 222 10^3/uL (130-400); RBC 3.45 10^6/uL (3.93-5.22); RDW 11.9 % (11.7-14.6); RDW-SD 42.1 fL; WBC 8.73 10^3/uL (4.4-10.8)
[2025-02-20 17:35] LABS: ALT 14 U/L (14-59); AST 17 U/L (15-37); Albumin 3.0 g/dL (3.4-5.0); Alkaline Phosphatase 135 U/L (46-116); Anion Gap 11.8 mmol/L (3-11); BUN 7 mg/dL (7-18); Bilirubin, Total 0.5 mg/dL (0.2-1.0); CO2 27.2 mmol/L (21.0-32.0); Calcium 8.9 mg/dL (8.5-10.1); Chloride 99 mmol/L (98-107); Estimated GFR 67.08 (mL/min/1.73m2); Glucose 100 mg/dL (74-106); Potassium 3.6 mmol/L (3.5-5.1); Sodium 138 mmol/L (136-145); Total Protein 6.2 g/dL (6.4-8.2)
== END 2025-02-20 16:44 | disposition home or self-care (01) ==
LOC: LBN 16:43
PROVIDERS: PCP Family Medicine; Visit Provider Nurse Practitioner Family
DX: R10.9 Unspecified abdominal pain (principal)
CPT/HCPCS: 80053; 85025

== ENCOUNTER 2025-02-21 02:15 | Outpatient (CLI) | payer MEDICARE, BC, SELFPAY ==
--- NOTE | 2025-02-21 06:30 | DI.CT_ITS ---
Exam(s) CT ABDOMEN PELVIS W EXAM: CT ABDOMEN PELVIS W CLINICAL HISTORY: eval pathology,abd pain,r10.9. TECHNIQUE: Imaging Protocol: Axial computed tomography images with coronal and sagittal reformatted images were created and reviewed CONTRAST MATERIAL: Intravenous: Omnipaque-350 75cc Oral: Yes. Oral contrast was also administered for bowel opacification. COMPARISON: CT CT ABDOMEN PELVIS W from 05/01/2023 FINDINGS: This patient was scanned multiple times following administration of additional oral contrast and after being on her right side down. VISUALIZED LUNG BASES: No nodules nor pleural effusions evident. Sternotomy wires evident. 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 LIVER: Small benign cyst in the medial aspect of the right hepatic lobe is again noted. No new of attic lesions nor dilated intrahepatic ducts. GALLBLADDER/BILIARY: There is a density in the anterior wall of the gallbladder fundus. This does not have typical appearance of a stone. Ultrasound recommended. There is no gallbladder wall edema nor pericholecystic fluid. CBD is not dilated. PANCREAS: The pancreatic head and uncinate process are in the abdomen but the pancreatic body and tail are again noted to be within the hernia within the chest. SPLEEN: Spleen is not enlarged. No obvious intrasplenic lesions. Splenic and portal veins are patent. ADRENALS: There are no significant adrenal masses. KIDNEYS:No cysts evident. No solid renal masses. No calculi nor hydronephrosis.. ABDOMINAL AORTA: Abdominal aorta is heavily calcified but without significant enlargement. The iliac arteries are also heavily calcified/atherosclerotic but not enlarged. LYMPH NODES:There is no retroperitoneal nor paraaortic adenopathy. ABDOMINAL WALL: Again noted is an anterior abdominal wall para umbilical hernia which contains fat and no bowel loops. GI: There is a large abnormal finding in the right iliac fossa which does not contain oral contrast. Is difficult to determine if this is an isolated part of the cecum or an abscess. This measures approximately 10 cm wide by 6.5 cm AP by 3.5 Cm craniocaudal. The appendix cannot be identified as a separate individual structure. This patient has a redundant sigmoid which appear approaches this region. There is some mild streaking in the mesentery around this region. PELVIS: LYMPH NODES: Small mesenteric lymph nodes. REPRODUCTIVE: Small uterus. No abnormal adnexal masses. No fluid in the cul-de-sac. URINARY BLADDER: No calculi nor obvious masses evident OSSEOUS: No fractures. Chronic disc space narrowing L5-S1. Mild anterolisthesis of L4 upon L5 related to facet arthropathy. IMPRESSION: 1. There is a large abnormal 10 x 6.5 x 3.5 cm structure in the right iliac fossa with multiple surrounding bowel loops. This is either an abnormal appearing cecum or possibly an abscess which is either related to a subacute ruptured appendicitis or diverticulitis (very redundant sigmoid also reaches t his region). Also cannot exclude possibility of this being secondary to neoplastic process. 2. 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 3. Surgical consultation is recommended. 4. Report called by myself to the referring physician and patient was brought to the emergency room for surgical consultation. RADIATION DOSE DELIVERED: 415.4mGy.cm Total DLP DATA REPOSITORY: All CT scans at this facility are submitted to the National Radiology Data Registry (NRDR) Dose Index Registry (DIR) with the [employer] ([employer]). RADIATION OPTIMIZATION: All CT scans at this facility use at least one of these dose optimization techniques: automated exposure control; mA and/or kV adjustment per patient size (includes targeted exams where dose is matched to clinical indication); or iterative reconstruction.
[2025-02-21] MEDS: Barium Sulfate 2% W/V-Creamy Vanilla Smoothie 450 ML BTL PO ×2 (08:20→12:00)
[2025-02-21] MEDS: Barium Sulfate 2% W/V-Berry Smoothie 450 ML BTL PO (08:20)
[2025-02-21] MEDS: Normal Saline - Diluent 50 ML VIAL IJ (10:22)
[2025-02-21] MEDS: Normal Saline Flush 10 ML SYR IVP (10:22)
[2025-02-21] MEDS: Omnipaque 350 MG/ML 100 ML BTL IJ (10:23)
== END 2025-02-21 02:35 ==
PROVIDERS: PCP Family Medicine; Visit Provider Nurse Practitioner Family
DX: R10.9 Unspecified abdominal pain (principal); R93.89 Abnormal findings on diagnostic imaging of other specified body structures
CPT/HCPCS: 36415; 80053; 83690; 96365; 96375; 99284; 74176; 74177; 81003; 81015; 83605; 85025; 85610; 85730; J2405; J3480; J3490

== ENCOUNTER 2025-02-21 13:58 | Emergency (ER) | payer MEDICARE, BC, SELFPAY ==
[2025-02-21 14:00] VITALS: BP 154/79; PULSE 99; RESP 18; TEMP 36.2; O2SAT 98
[2025-02-21 16:20] LABS: Abs Immature Grans 0.03 10^3/uL (0.0-0.06); HCT 35.7 % (36.0-46.0); HGB 11.6 g/dL (11.2-15.7); Immature Grans % 0.3 %; MCH 30.5 pg (27.0-33.0); MCHC 32.5 % (32.0-36.0); MCV 94 fL (80-95); MPV 10.1 fL (8.0-11.0); Platelet Count 259 10^3/uL (130-400); RBC 3.80 10^6/uL (3.93-5.22); RDW 11.9 % (11.7-14.6); RDW-SD 41.5 fL; WBC 9.04 10^3/uL (4.4-10.8)
[2025-02-21 16:28] LABS: Glucose Negative (Negative)
[2025-02-21 16:39] LABS: ALT 13 U/L (14-59); AST 18 U/L (15-37); Albumin 3.1 g/dL (3.4-5.0); Alkaline Phosphatase 147 U/L (46-116); Anion Gap 14.1 mmol/L (3-11); BUN 6 mg/dL (7-18); Bilirubin, Total 0.5 mg/dL (0.2-1.0); CO2 26.9 mmol/L (21.0-32.0); Calcium 9.3 mg/dL (8.5-10.1); Chloride 96 mmol/L (98-107); Estimated GFR 67.08 (mL/min/1.73m2); Glucose 103 mg/dL (74-106); Sodium 137 mmol/L (136-145); Total Protein 7.7 g/dL (6.4-8.2)
[2025-02-21 16:40] LABS: Potassium 2.9 mmol/L (3.5-5.1)
[2025-02-21 16:46] LABS: C & S Indicated? No; RBC 0-2 HPF (0-2)
--- NOTE | 2025-02-21 17:00 | DI.CT_ITS ---
Exam(s) CT ABDOMEN PELVIS WO EXAM: CT ABDOMEN PELVIS WO CLINICAL HISTORY: abscess vs mass. TECHNIQUE: Imaging Protocol: Axial computed tomography images with coronal and sagittal reformatted images were created and reviewed. Oral: yes, residual from previous scan. No additional contrast was administered. COMPARISON: CT CT ABDOMEN PELVIS W from 07/04/[address] ABDOMEN PELVIS W from 05/01/[address] ABDOMEN PELVIS W from 02/21/2025 FINDINGS: Lung Bases: No acute findings. 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 Again no evidence of obstruction. Calcifications are noted at the left heart border. Liver: Normal density. No suspicious mass. Gallbladder and biliary tract: No radiodense calculus or biliary dilation. Pancreas: Normal density. No abnormal calcifications or inflammatory process. Spleen: Normal. Kidneys: Normal size, contour and axis. No radiodense stones. No obstructive uropathy. No suspicious masses seen. Residual contrast noted in the collecting systems and urinary bladder. Adrenal glands: No masses seen. Lymph nodes: Mildly enlarged lymph nodes are noted in the right mid abdomen. Vasculature: Abdominal aorta non-dilated. Severe atherosclerotic changes with narrowing of the lumen of the aorta and common iliac arteries. Soft tissues: Small fat containing hernia above the level of the umbilicus. Bladder: Contains previously administered contrast. No wall thickening. Bowel: The oral contrast has now progressed into the distal small bowel and colon. Contrast is seen within the terminal ileum which appears mildly narrowed. Contrast extends into the cecum and ascending colon through to the level of the distal sigmoid. Medial to the terminal ileum and ascending colon, again noted is a large mass- like collection which does not contain contrast. Peritoneal cavity: Trace fluid in the low pelvis, similar to prior. No focal collection. Reproductive organs: Unremarkable. Bones: Unremarkable for age. IMPRESSION: Large soft tissue mass collection right lower quadrant adjacent to the cecum and terminal ileum. The findings could represent an appendiceal abscess of versus appendiceal mass. The appendix is not visualized as a separate structure. There is no evidence of associated bowel obstruction. There is ad jacent inflammation of the terminal ileum and cecum. Findings discussed with Missael Ambrocio, ER provider. RADIATION DOSE DELIVERED: Total DLP DATA REPOSITORY: All CT scans at this facility are submitted to the National Radiology Data Registry (NRDR) Dose Index Registry (DIR) with the [employer] ([employer]). RADIATION OPTIMIZATION: All CT scans at this facility use at least one of these dose optimization techniques: automated exposure control; mA and/or kV adjustment per patient size (includes targeted exams where dose is matched to clinical indication); or iterative reconstruction.
[2025-02-21 17:19] LABS: INR 1.8 (0.9-1.1); PTT Activated 32.5 sec (20.6-30.2); Prothrombin Time 17.0 sec (9.1-11.1)
--- NOTE | 2025-02-21 17:23 | ED.GENADUL_ITS ---
Discharge Plan Disposition Patient Disposition: Home Condition: Stable Discharge Details Clinical Impression: Abdominal mass, Hypokalemia Primary Care Provider: Godfrey Durand ED Provider: Missael Ambrocio Home Meds and New Rx's Prescriptions: Continued (DME) nebulizer and compressor Device See Rx Instructions .Route Qty: 1 0RF Rx Instructions: As directed clonazepam 0.5 mg tablet 0.5 mg PO BID PRN (Reason: anxiety) Qty: 10 0RF ipratropium-albuterol 0.5 mg-3 mg(2.5 mg base)/3 mL solution for nebulization 3 ml inhalation Q4H PRN (Reason: shortness of breath or wheezing) Qty: 90 3RF Rx Instructions: Use every 4-6 hours as need for SOB or wheezing aspirin [Aspir-81] 81 MG tablet,delayed release (DR/EC) 81 mg PO DAILY Qty: 100 losartan 50 mg tablet 75 mg PO DAILY Qty: 135 3RF Rx Instructions: dose increase 07/03/21 metoprolol succinate 100 mg tablet extended release 24 hr 100 mg PO DAILY Qty: 90 3RF omeprazole 20 mg capsule,delayed release(DR/EC) 20 mg PO DAILY Qty: 90 3RF albuterol sulfate [Ventolin HFA] 90 mcg/actuation HFA aerosol inhaler 2 puff inhalation QID PRN (Reason: shortness of breath or wheezing) Qty: 8.5 2RF imipramine HCl 50 mg tablet 50 mg PO DAILY Qty: 90 3RF simvastatin 40 mg tablet 40 mg PO DAILY Qty: 90 3RF (DME) nebulizer and compressor Device See Rx Instructions .Route Qty: 1 0RF Rx Instructions: As directed Discharge Instructions Instructions: High Potassium Diet Additional Instructions: You were seen in the emergency department for your undifferentiated abdominal mass versus abscess, you have had a stable course for the past 2 weeks and I discussed this with multiple specialists I think it is reasonable that we try to refer you urgently to see [facility] interventional radiology, I am having our city secretary forward information to your primary care to send a referral tomorrow, [facility] is aware of this and they will expect to see you soon, you will need to return to a definitive emergency center for any severe acute worsening of your abdominal pain especially with fever, intractable nausea or vomiting, lack of passing flatus or signs of obstruction. Referrals: Godfrey Durand MD [Primary Care Provider, Medicine] HPI General Date/Time Provider Initiated Documentation: 02/21/25 15:11 . HPI Narrative: 74 year-old female presents to ED today by POV/ambulating with her daughters with a chief complaint of had outpatient CT for 2 weeks of vague abdominal pain- question possible hernia performed this morning with unexpected findings. Quality described as mild abdominal pains R sided, no radiation to vomiting, diarrhea, endorses long history of irregular stools, diverticulitis 15 years ago, denies fever, denies chest pain or shortness of breath. Severity is described as mild. Palliating factors include nothing specific. Provoking factors include nothing specific. Patient not anticoagulated. Related Data Home Medications ?Medication ?Instructions ?Recorded ?Confirmed aspirin 81 mg tablet,delayed 81 mg PO DAILY #100 tab-c aps 05/30/15 02/21/25 release (Aspir-) nebulizer and compressor #1 ea 08/04/21 02/21/25 nebulizer and compressor #1 ea 08/06/21 02/21/25 losartan 50 mg tablet 75 mg (1.5 x 50 mg) PO DAILY #135 05/04/24 02/21/25 tab-caps metoprolol succinate 100 mg 100 mg PO DAILY #90 tab-ca ps 06/06/24 02/21/25 tablet,extended release 24 hr omeprazole 20 mg capsule,delayed 20 mg PO DAILY #90 ca ps 07/11/24 02/21/25 release clonazepam 0.5 mg tablet 0.5 mg PO BID PRN anxiety #1 0 07/22/24 02/21/25 tab-caps ipratropium 0.5 mg-albuterol 3 mg 3 ml inhalation Q4H PRN shortness 07/22/24 02/21/25 (2.5 mg base)/3 mL nebulization of breath or wheezing #90 mL soln albuterol sulfate 90 mcg/actuation 2 puff inhalation Q ID PRN 12/05/24 02/21/25 aerosol inhaler (Ventolin HFA) shortness of breath or wheezing #8.5 grams imipramine HCl 50 mg tablet 50 mg PO DAILY #90 tab-cap s 12/08/24 02/21/25 simvastatin 40 mg tablet 40 mg PO DAILY #90 tab-caps 01/06/25 02/21/25 Previous Rx's ?Medication ?Instructions ?Recorded nebulizer and compressor #1 ea 08/04/21 nebulizer and compressor #1 ea 08/06/21 losartan 50 mg tablet 75 mg (1.5 x 50 mg) PO DAILY #135 05/04/24 tab-caps metoprolol succinate 100 mg 100 mg PO DAILY #90 tab-ca ps 06/06/24 tablet,extended release 24 hr omeprazole 20 mg capsule,delayed 20 mg PO DAILY #90 ca ps 07/11/24 release clonazepam 0.5 mg tablet 0.5 mg PO BID PRN anxiety #1 0 07/22/24 tab-caps ipratropium 0.5 mg-albuterol 3 mg 3 ml inhalation Q4H PRN shortness 07/22/24 (2.5 mg base)/3 mL nebulization of breath or wheezing #90 mL soln albuterol sulfate 90 mcg/actuation 2 puff inhalation Q ID PRN 12/05/24 aerosol inhaler (Ventolin HFA) shortness of breath or wheezing #8.5 grams imipramine HCl 50 mg tablet 50 mg PO DAILY #90 tab-cap s 12/08/24 simvastatin 40 mg tablet 40 mg PO DAILY #90 tab-caps 01/06/25 Allergies Allergy/AdvReac Type Severity Reaction Status Date / Time hydrochlorothiazide Allergy Unknown Verified 02/21/25 14:03 lisinopril Allergy Unknown Verified 02/21/25 14:03 nitrofurantoin AdvReac Intermediate Nausea Verified 02/21/25 14:03 General Stated Complaint: Abd Prob SHANICE: 3 Review of Systems All systems reviewed & are unremarkable except as noted in HPI and below Exam Narrative Exam Narrative: GENERAL APPEARANCE: Well-nourished, non-toxic, awake and alert, atraumatic, no acute distress. SKIN: Warm, pink, dry, intact, without rashes/lesions/ulcerations. HEAD: Normocephalic, atraumatic, normal hair distribution for gender/age. EYES: Normal conjunctiva, no exudates on lids/lashes. ENT: Nares patent, no circumoral cyanosis, no facial swelling NECK: Supple, trachea midline, painless cervical ROM. LUNGS/CHEST: Lungs CTA bilaterally, non-labored respirations, normal A/P diameter, symmetrical expansion, no chest wall deformity HEART (CV/PV): Regular rate and rhythm without murmur, no peripheral edema, no JVD. ABDOMEN: Soft, non-distended, no guarding, R sided mild abdominal tenderness without rebound tenderness, no Rovsing's, neg Serra's sign, no CVA tenderness to percussion bilaterally. MSK: Normal ROM, no swelling/deformity to bilateral UEs or LEs, moving all extremities without weakness, no cyanosis, spine midline without tenderness, normal curvature. NEURO: Mental Status AAOx4 - alert to person, place, time, events No facial droop, no forehead involvement. Motor: No focal weakness - strength 5/5 in bilateral UEs and LEs, proximal and distal, symmetric. Sensory: sensation intact to light touch globally. Gait normal: patient ambulated without ataxia into ED room. PSYCH: euthymic, cooperative, pleasant, appropriate speech Course Vital Signs Vital signs: Vital Signs Temperature 36.2 C L 02/21/25 14:00 Pulse 99 H 02/21/25 14:00 Respiratory Rate 18 02/21/25 14:00 Blood Pressure 154/79 H 02/21/25 14:00 Pulse Oximetry 98 02/21/25 14:00 Temperature 36.2 C L 02/21/25 14:00 Pulse 99 H 02/21/25 14:00 Respiratory Rate 18 02/21/25 14:00 Blood Pressure 154/79 H 02/21/25 14:00 Pulse Oximetry 98 02/21/25 14:00 Oxygen Delivery Method Room Air 02/21/25 14:00 Oxygen Flow Rate 0 02/21/25 14:00 Pain Level 0 02/21/25 14:00 Lab/Test Results Lab/Test Results: Laboratory Tests Range/Units 02/21/25 02/21/25 02/21/25 15:57 16:08 16:59 WBC (4.4-10.8) 10^3/uL 9.04 RBC (3.93-5.22) 10^6/uL 3.80 L Hgb (11.2-15.7) g/dL 11.6 Hct (36.0-46.0) % 35.7 L MCV (80-95) fL 94 MCH (27.0-33.0) pg 30.5 MCHC (32.0-36.0) % 32.5 RDW (11.7-14.6) % 11.9 Plt Count (130-400) 10^3/uL 259 MPV (8.0-11.0) fL 10.1 Immature Gran % % 0.3 Neutrophils % % 86.1 Lymphocytes % % 6.6 Monocytes % % 6.4 Eosinophils % % 0.2 Basophils % % 0.4 Nucleated RBC % (0.0-0.3) % 0.0 Absolute Neutrophils (1.2-6.7) 10^3/uL 7.77 H Absolute Lymphocytes (1.2-3.4) 10^3/uL 0.60 L Absolute Monocytes (0.1-0.8) 10^3/uL 0.58 Absolute Eosinophils (0.0-0.7) 10^3/uL 0.02 Absolute Basophils (0.0-0.2) 10^3/uL 0.04 PT (9.1-11.1) sec 17.0 H INR (0.9-1.1) 1.8 H APTT (20.6-30.2) sec 32.5 H VBG Lactate (<or=2.0) mmol/L 1.8 Sodium (136-145) mmol/L 137 Potassium (3.5-5.1) mmol/L 2.9 L* Chloride (98-107) mmol/L 96 L Carbon Dioxide (21.0-32.0) mmol/L 26.9 Anion Gap (3-11) mmol/L 14.1 H BUN (7-18) mg/dL 6 L Creatinine (0.55-1.02) mg/dL 0.9 Est GFR (CKD-EPI 2020) (mL/min/1.73m2) 67.08 Glucose (74-106) mg/dL 103 Calcium (8.5-10.1) mg/dL 9.3 Total Bilirubin (0.2-1.0) mg/dL 0.5 AST (15-37) U/L 18 ALT (14-59) U/L 13 L Alkaline Phosphatase (46-116) U/L 147 H Total Protein (6.4-8.2) g/dL 7.7 Albumin (3.4-5.0) g/dL 3.1 L Urine Color (Yellow) Yellow Urine Clarity (Clear) Clear Urine pH (5-8) 6.0 Ur Specific [place] (1.005-1.025) <= 1.005 Urine Protein (Neg-Trace) mg/dL 100 H Urine Ketones (Negative) mg/dL 40 H Urine Blood (Negative) Negative Urine Nitrite (Negative) Negative Urine Bilirubin (Negative) Small H Urine Urobilinogen (Up to 0.2) mg/dL 0.2 Ur Leukocyte Esterase (Negative) Negative Urine RBC (0-2) HPF 0-2 Urine WBC (0-5) HPF 3-5 Ur Epithelial Cells (Negative) HPF Few Urine Crystals (Negative) HPF Negative Urine Bacteria (Negative) HPF Rare Urine Casts (Negative) LPF Negative Urine Mucus (Negative) Negative Ur Culture Indicated? No Urine Glucose (Negative) mg/dL Negative Medical Decision Making This dictation utilizes [id number] dictation software and may contain unedited grammatical errors. 74 year-old female presents to ED today by POV/ambulating with her daughters with a chief complaint of had outpatient CT for 2 weeks of vague abdominal pain- question possible hernia performed this morning with unexpected findings. Quality described as mild abdominal pains R sided, no radiation to vomiting, diarrhea, endorses long history of irregular stools, diverticulitis 15 years ago, denies fever, denies chest pain or shortness of breath. Severity is described as mild. Palliating factors include nothing specific. Provoking factors include nothing specific. Patients' medical history: COPD, constipation, aneurysm of heart, diverticulosis, hypercholesterolemia, hypertension. Family and social history: Family history of colorectal cancer in her father. Pertinent exam findings / vital signs include right-sided abdominal tenderness without peritoneal signs, no McBurney's point tenderness, no CVA tenderness to percussion bilaterally, benign cardiopulmonary exam, neuro intact. Differential / pathologies of concern include abdominal mass versus abscess. Diagnostic studies of: - Reviewed CT from earlier today she has a 10 x 6.5 x 3.5 cm mass versus abscess in the cecum, undifferentiated between abscess and mass. - Added baseline laboratory studies, CBC, CMP, lactate, PT/PTT, UA, lipase, CT abdomen pelvis without - CBC shows no leukocytosis, shows a mild elevation of absolute neutrophils at 7.77 with low lymphocytes, no anemia, normal platelet count - CMP shows hypokalemia with a potassium of 2.9 with no other actionable abnormality - Lipase negative - Lactate 1.8 do not suspect sepsis - UA is benign - Coagulation studies show a PT of 17.0 and an INR of 1.8, PTT 32.5 - CT again shows undifferentiated mass, possible appendiceal tumor versus abscess Interventions of: - acetamenophen, zofran. ED Course/Assessment/Plan: At 1630 I discussed the patient's CT results with general surgery on-call Dr. Ko, recommends [facility] interventional radiology consult I spoke with resident Ritesh with [facility] IR at 1645 they recommend repeat imaging without contrast to see if there is any changes as her contrast has been moving through her system from this morning scan, spoke with him again at 1906 in regards to still having undifferentiated mass, that the patient's 2-week onset of stability we did come up with a plan of sending a message to the patient's PCP tomorrow for referral to [facility] IR and possible colorectal versus oncological surgeon. Findings not consistent with bowel obstruction, leaking abscess, peritonitis, sepsis. Disposition of Abdominal Mass. Patient verbalized understanding of the plan and return to ED criteria and engaged in shared decision making. Medical Records Medical records reviewed: Yes I reviewed the patient's medical records. Imaging Data Radiologic Study: Attestation: I personally reviewed and interpreted this imaging study as follows: Radiologist's impression: EXAM: CT ABDOMEN PELVIS W CLINICAL HISTORY: eval pathology,abd pain,r10.9. TECHNIQUE: Imaging Protocol: Axial computed tomography images with coronal and sagittal reformatted images were created and reviewed CONTRAST MATERIAL: Intravenous: Omnipaque-350 75cc Oral: Yes. Oral contrast was also administered for bowel opacification. COMPARISON: CT CT ABDOMEN PELVIS W from 05/01/2023 FINDINGS: This patient was scanned multiple times following administration of additional oral contrast and after being on her right side down. VISUALIZED LUNG BASES: No nodules nor pleural effusions evident. Sternotomy w ires evident. 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 LIVER: Small benign cyst in the medial aspect of the right hepatic lobe is again noted. No new of attic lesions nor dilated intrahepatic ducts. GALLBLADDER/BILIARY: There is a density in the anterior wall of the gallbladder fundus. This does not have typical appearance of a stone. Ultrasound recommended. There is no gallbladder wall edema nor pericholecystic fluid. CBD is not dilated. PANCREAS: The pancreatic head and uncinate process are in the abdomen but the pancreatic body and tail are again noted to be within the hernia within the chest. SPLEEN: Spleen is not enlarged. No obvious intrasplenic lesions. Splenic and portal veins are patent. ADRENALS: There are no significant adrenal masses. KIDNEYS:No cysts evident. No solid renal masses. No calculi nor hydronephrosis.. ABDOMINAL AORTA: Abdominal aorta is heavily calcified but without significant enlargement. The iliac arteries are also heavily calcified/atherosclerotic but not enlarged. LYMPH NODES:There is no retroperitoneal nor paraaortic adenopathy. ABDOMINAL WALL: Again noted is an anterior abdominal wall para umbilical hernia which contains fat and no bowel loops. GI: There is a large abnormal finding in the right iliac fossa which does not contain oral contrast. Is difficult to determine if this is an isolated part of the cecum or an abscess. This measures approximately 10 cm wide by 6.5 cm AP by 3.5 Cm craniocaudal. The appendix cannot be identified as a separate individual structure. This patient has a redundant sigmoid which appear approaches this region. There is some mild streaking in the mesentery around this region. PELVIS: LYMPH NODES: Small mesenteric lymph nodes. REPRODUCTIVE: Small uterus. No abnormal adnexal masses. No fluid in the cul-de-sac. URINARY BLADDER: No calculi nor obvious masses evident OSSEOUS: No fractures. Chronic disc space narrowing L5-S1. Mild anterolisthesis of L4 upon L5 related to facet arthropathy. IMPRESSION: 1. There is a large abnormal 10 x 6.5 x 3.5 cm structure in the right iliac fossa with multiple surrounding bowel loops. This is either an abnormal appearing cecum or possibly an abscess which is either related to a subacute ruptured appendicitis or diverticulitis (very redundant sigmoid also reaches this region). Also cannot exclude possibility of this being secondary to neoplastic process. 2. 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 3. Surgical consultation is recommended. 4. Report called by myself to the referring physician and patient was brought to the emergency room for surgical consultation. Radiologic Study #2: Attestation: I personally reviewed and interpreted this imaging study as follows: Imaging: CT Scan Radiologist's impression: EXAM: CT ABDOMEN PELVIS WO CLINICAL HISTORY: abscess vs mass. TECHNIQUE: Imaging Protocol: Axial computed tomography images with coronal and sagittal reformatted images were created and reviewed. Oral: yes, residual from previous scan. No additional contrast was administered. COMPARISON: CT CT ABDOMEN PELVIS W from 07/04/[address] ABDOMEN PELVIS W from 05/01/[address] ABDOMEN PELVIS W from 02/21/2025 FINDINGS: Lung Bases: No acute findings. 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 Again no evidence of obstruction. Calcifications are noted at the left heart border. Liver: Normal density. No suspicious mass. Gallbladder and biliary tract: No radiodense calculus or biliary dilation. Pancreas: Normal density. No abnormal calcifications or inflammatory process. Spleen: Normal. Kidneys: Normal size, contour and axis. No radiodense stones. No obstructive uropathy. No suspicious masses seen. Residual contrast noted in the collecting systems and urinary bladder. Adrenal glands: No masses seen. Lymph nodes: Mildly enlarged lymph nodes are noted in the right mid abdomen. Vasculature: Abdominal aorta non-dilated. Severe atherosclerotic changes with narrowing of the lumen of the aorta and common iliac arteries. Soft tissues: Small fat containing hernia above the level of the umbilicus. Bladder: Contains previously administered contrast. No wall thickening. Bowel: The oral contrast has now progressed into the distal small bowel and colon. Contrast is seen within the terminal ileum which appears mildly narrowed. Contrast extends into the cecum and ascending colon through to the level of the distal sigmoid. Medial to the terminal ileum and ascending colon, again noted is a large mass- like collection which does not contain contrast. Peritoneal cavity: Trace fluid in the low pelvis, similar to prior. No focal collection. Reproductive organs: Unremarkable. Bones: Unremarkable for age. IMPRESSION: Large soft tissue mass collection right lower quadrant adjacent to the cecum and terminal ileum. The findings could represent an appendiceal abscess of versus appendiceal mass. The appendix is not visualized as a separate structure. There is no evidence of associated bowel obstruction. There is adjacent inflammation of the terminal ileum and cecum. Findings discussed with Missael Ambrocio, ER provider. Lab Data Lab results reviewed: Yes I reviewed the patient's lab results. Labs: Laboratory Tests Range/Units 02/21/25 02/21/25 02/21/25 15:57 16:08 16:59 WBC (4.4-10.8) 10^3/uL 9.04 RBC (3.93-5.22) 10^6/uL 3.80 L Hgb (11.2-15.7) g/dL 11.6 Hct (36.0-46.0) % 35.7 L MCV (80-95) fL 94 MCH (27.0-33.0) pg 30.5 MCHC (32.0-36.0) % 32.5 RDW (11.7-14.6) % 11.9 Plt Count (130-400) 10^3/uL 259 MPV (8.0-11.0) fL 10.1 Immature Gran % % 0.3 Neutrophils % % 86.1 Lymphocytes % % 6.6 Monocytes % % 6.4 Eosinophils % % 0.2 Basophils % % 0.4 Nucleated RBC % (0.0-0.3) % 0.0 Absolute Neutrophils (1.2-6.7) 10^3/uL 7.77 H Absolute Lymphocytes (1.2-3.4) 10^3/uL 0.60 L Absolute Monocytes (0.1-0.8) 10^3/uL 0.58 Absolute Eosinophils (0.0-0.7) 10^3/uL 0.02 Absolute Basophils (0.0-0.2) 10^3/uL 0.04 PT (9.1-11.1) sec 17.0 H INR (0.9-1.1) 1.8 H APTT (20.6-30.2) sec 32.5 H VBG Lactate (<or=2.0) mmol/L 1.8 Sodium (136-145) mmol/L 137 Potassium (3.5-5.1) mmol/L 2.9 L* Chloride (98-107) mmol/L 96 L Carbon Dioxide (21.0-32.0) mmol/L 26.9 Anion Gap (3-11) mmol/L 14.1 H BUN (7-18) mg/dL 6 L Creatinine (0.55-1.02) mg/dL 0.9 Est GFR (CKD-EPI 2020) (mL/min/1.73m2) 67.08 Glucose (74-106) mg/dL 103 Calcium (8.5-10.1) mg/dL 9.3 Total Bilirubin (0.2-1.0) mg/dL 0.5 AST (15-37) U/L 18 ALT (14-59) U/L 13 L Alkaline Phosphatase (46-116) U/L 147 H Total Protein (6.4-8.2) g/dL 7.7 Albumin (3.4-5.0) g/dL 3.1 L Lipase (<78) U/L 19 Urine Color (Yellow) Yellow Urine Clarity (Clear) Clear Urine pH (5-8) 6.0 Ur Specific [place] (1.005-1.025) <= 1.005 Urine Protein (Neg-Trace) mg/dL 100 H Urine Ketones (Negative) mg/dL 40 H Urine Blood (Negative) Negative Urine Nitrite (Negative) Negative Urine Bilirubin (Negative) Small H Urine Urobilinogen (Up to 0.2) mg/dL 0.2 Ur Leukocyte Esterase (Negative) Negative Urine RBC (0-2) HPF 0-2 Urine WBC (0-5) HPF 3-5 Ur Epithelial Cells (Negative) HPF Few Urine Crystals (Negative) HPF Negative Urine Bacteria (Negative) HPF Rare Urine Casts (Negative) LPF Negative Urine Mucus (Negative) Negative Ur Culture Indicated? No Urine Glucose (Negative) mg/dL Negative Quality:SDOH Health Related Social Needs: Health related social needs details none PFSH All Active Problems (Updated 02/21/25 @ 19:36 by LORENZO Olivo) Hypokalemia (Acute) Abdominal mass (Acute) Elevated brain natriuretic peptide (BNP) level (Acute) Orthopnea (Acute) Diverticulitis (Chronic) Recurrent UTI (urinary tract infection) (Acute) Anxiety disorder (Acute) Hiatal hernia (Chronic) Allergic sinusitis (Acute) Epigastric pain (Acute) Chronic GERD (Acute 12/26/15) Depressive disorder (Acute 11/01/12) Coronary disease (Chronic) a. Presented April 2010 w/ burning between her shoulder blades & found to have an ST elevation TX. b. Status post CABG x3 April 2010. c. 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 d. R/O TX episodes x2 August 2010. e. Cath at time showed significant stenosis of left main, three-vessel coronary disease, patient left internal mammary artery gradt to LAD, but obstructive disease of the saphenous graft to ELISABETH, and RCA with decreased LB ejection fraction of 20%. Lateral wall pseudoaneurysm of the LV appears somewhat changed since 09/05/2010 w/ a separate anterior tract. Chronic obstructive pulmonary disease (COPD) (Chronic) a. A 45-[id number]-[id number] history of smoking. b. Quit 2008, but still puffs occasionally. -08/25/13 Hypercholesteremia (Chronic) a. On therapy. b. LDL 63. Memory loss (Chronic) mild Depression (Chronic) Hypertension (Chronic) Medical History Acute hemorrhoid (04/23/17) Constipation (04/23/17) History of tobacco use quit 2009 - after CABG; 40 packyr hx Family history of colorectal cancer in brother. anginal episode (08/25/13) a. Initial EKG no change. b. Initial troponin negative. c. Admitted to ICU for observation Surgical History Aneurysm of heart S/P SURGICAL REPAIR History of surgery a. CABG x3 2008. b. Aneurysm surgery 2008. Colonoscopy - MAC (10/09/17) Family History Mother , age 80 No problems noted. Father , age 89 Cancer Sister No problems noted. Sister No problems noted. Brother No problems noted. Brother No problems noted. Son No problems noted. Daughter No problems noted. Social History Smoking/Tobacco Use Status: Current-Occasional Tobacco Type: cigarettes Tobacco: How many years used: 40 Second Hand Exposure: Yes Smoking risk assessment performed?: Yes Alcohol Intake: never Drug use: Daily Substance use type: marijuana Adopted: No Caregiver/Support person: No Foster care: No Household members: none Housing: house Number of Children: 2 number of grandchildren: 7 Communication Needs: None Education Level: high school Do you need help understanding health information?: Never current occupation: Retired Pets and animals: Yes Pets and animals: cat(s) Sexually active: No Do you think of yourself as: straight/heterosexual Current gender identity: decline to answer What is your relationship status?: How often do you talk on the phone with friends or family?: three or more times per week How often do you get together with friends or relatives?: three or more times per week How often do you attend gnosticist or restoration services?: decline to answer Do you belong to any clubs or organized social groups?: decline to answer Panel score (0-1 are the most socially isolated patients): 1 What type of physical activity do you participate in: walking Duration: 45-60 minutes/day Frequency: daily Justine/Yarsanism: None Special justine needs: No Seatbelt use: always Helmet use: Yes Helmet use: always Drive intox or ride w/intox heavy truck driver: No Firearms in home: Yes Firearms unloaded and locked: Yes Do you feel safe at home: Yes Victim of physical abuse: No Victim of emotional abuse: No Victim of sexual abuse: No Would you like helpful sources: No
[2025-02-21] MEDS: POTASSIUM CHLORIDE 10 MEQ/100 ML BAG 100 MEQ IV_INF (17:37)
[2025-02-21 17:46] LABS: Lipase 19 U/L (<78)
[2025-02-21] MEDS: Famotidine 20 MG/2 ML VIAL IVP (17:59)
[2025-02-21] MEDS: Ondansetron 4 MG/2 ML VIAL IVP (18:00)
[2025-02-21 19:46] VITALS: BP 152/78; PULSE 80; RESP 18; TEMP 36.8; O2SAT 98
== END 2025-02-21 19:49 | disposition home or self-care (01) ==
PROVIDERS: Emergency Provider Physician Assistant; PCP Family Medicine
DX: E87.6 Hypokalemia (principal); R19.00 Intra-abdominal and pelvic swelling, mass and lump, unspecified site
CPT/HCPCS: 99284 ×2; 36415; 96375; 80053; 83690; 96365; 74176; 81003; 81015; 83605; 85025; 85610; 85730; J2405; J3480

== ENCOUNTER → 2025-03-03 10:07 | Outpatient (BNVA) | payer MEDICARE, BC, SELFPAY | PROVIDERS: PCP Family Medicine; Referring Provider Family Medicine; Visit Provider Surgery | DX: R19.03 Right lower quadrant abdominal swelling, mass and lump (principal); K57.32 Diverticulitis of large intestine without perforation or abscess without bleeding; K59.00 Constipation, unspecified; R10.31 Right lower quadrant pain; Z80.0 Family history of malignant neoplasm of digestive organs; Z86.79 Personal history of other diseases of the circulatory system | CPT/HCPCS: 99215 ==

== ENCOUNTER 2025-03-10 05:55 | Day surgery (SDC) | payer MEDICARE, BC, SELFPAY ==
--- NOTE | 2025-03-09 20:17 | W.PM.DSUDISC ---
Date of service: 03/10/25 Discharge Plan Disposition Patient Disposition: Home Condition: Good Discharge Details Reason For Visit: diagnostic colonoscopy Attending Provider: Gustavo Lal Primary Care Provider: Godfrey Durand Home Meds and New Rx's Prescriptions: Continued (DME) nebulizer and compressor Device See Rx Instructions .Route Qty: 1 0RF Rx Instructions: As directed clonazepam 0.5 mg tablet 0.5 mg PO BID PRN (Reason: anxiety) Qty: 10 0RF ipratropium-albuterol 0.5 mg-3 mg(2.5 mg base)/3 mL solution for nebulization 3 ml inhalation Q4H PRN (Reason: shortness of breath or wheezing) Qty: 90 3RF Rx Instructions: Use every 4-6 hours as need for SOB or wheezing aspirin [Aspir-81] 81 MG tablet,delayed release (DR/EC) 81 mg PO DAILY Qty: 100 losartan 50 mg tablet 75 mg PO DAILY Qty: 135 3RF Rx Instructions: dose increase 07/03/21 metoprolol succinate 100 mg tablet extended release 24 hr 100 mg PO DAILY Qty: 90 3RF omeprazole 20 mg capsule,delayed release(DR/EC) 20 mg PO DAILY Qty: 90 3RF albuterol sulfate [Ventolin HFA] 90 mcg/actuation HFA aerosol inhaler 2 puff inhalation QID PRN (Reason: shortness of breath or wheezing) Qty: 8.5 2RF imipramine HCl 50 mg tablet 50 mg PO DAILY Qty: 90 3RF simvastatin 40 mg tablet 40 mg PO DAILY Qty: 90 3RF (DME) nebulizer and compressor Device See Rx Instructions .Route Qty: 1 0RF Rx Instructions: As directed Discharge Instructions Instructions: Colon polyps, Diverticulosis Additional Instructions: Xi, it was very nice meeting you today, and hope you feel well after the procedure. Things went smoothly. Your prep was excellent, and I could see everything fine. We were able to get across the hiatal hernia and make it all the way to the beginning of the large intestine. I was even able to get into the bottom portion of the small intestine for a few centimeters. Although I did find 3 polyps, I do not suspect that any of these account for the findings on the CT scan. I did remove these polyps today, and I will send them to the pathologist for them to review. We will still need to make a plan regarding the diagnosis of the mass in your right lower quadrant. I have taken the liberty of scheduling a follow-up appointment in our office on March 29 at 11:[address] Harris. I suspect the pathology from the polyps will be resulted by then, and we will certainly let you know those results. If you need anything in the meantime, please do not hesitate to call at any point. 1. If tolerated, consume a soft, low fiber diet for 1-2 days. 2[address] Do not drive, drink alcohol, operate machinery, make critical decisions, or do activities that require coordination or balance for 24 hours. 3. Because air was put into your colon during the procedure, expelling air from your rectum (passing gas or farting) is normal. 4. You may not have a bowel movement for 1-3 days because of the colonoscopy prep. This is normal. 5. Go directly to the emergency room if you notice any of the following: Develop chills (warm to touch), or if you have a thermometer and your temperature is above 101 Difficulty breathing or difficultly swallowing Persistent vomiting Severe abdominal pain, other than gas cramps Severe chest pain Black, tarry stools Any bleeding ? exceeding one tablespoon 6. Call your physician if the site where your intravenous was started becomes red, swollen, painful, and warm to touch. 7. Your physician has reviewed your pre-procedure medications. Please continue to take those medications as previously ordered. You will be given specific information/education regarding any changes to your medications before leaving. Referrals: Neha Harris MD [ [facility] STAFF PHYSICIAN, Surgery] - 03/29/25 11:30 am Activity:: Activity as Tolerated Diet:: As Tolerated Discharge Orders Discharge Orders: Discharge Order (Routine); Ordered 03/09/25 Ordered By: Gustavo Lal DS: Diagnosis Discharge Diagnosis (1) Abdominal mass, RLQ (right lower quadrant): Status: Acute Asessment and Plan: Outpatient follow-up
--- NOTE | 2025-03-09 20:23 | W.COLOREPORT ---
Date of service: 03/10/25 Time of Service: 08:34 Colonoscopy Report Date of procedure: 03/10/25 Pre-op diagnosis general: Right lower quadrant mass Post-op diagnosis procedure note: other (3 cecal polyps, diverticulosis) Procedure: diagnostic colonoscopy with polypectomy Surgeon: Gustavo Lal Anesthesia Type: General:No Airway Estimated blood loss (mL): 10 Pathology: other (0.25 cm flat cecal polyps x 3 (single specimen)) Complications: None Disposition: same day Indications: Xi is a 74 year old woman with a mass in the right lower quadrant seen on CT scan. Prep: Miralax/Dulcolax Procedure Start Time: 07:38 Procedure End Time: 08:18 Retraction Time: 17 Findings: Pandiverticulosis, cecal polyps Procedure Description: After the induction of anesthesia, and with Xi in left lateral decubitus position, I began by performing an external anorectal exam.? Perineum and skin were normal, as was the anal verge.? Next, I performed a digital rectal exam.? This was normal.? Next, I advanced a colonoscope into the rectal vault.? I performed retroflexion.? This appeared normal.? Using irrigation, I then advanced the colonoscope beyond the rectal folds and into the sigmoid colon before advancing towards the cecum.? There is extensive sigmoid diverticulosis. Great care was taken while crossing the transverse colon, as this was involved in a large hiatal hernia. With a combination of irrigation, suction, and repositioning, we were able to traverse this and continue all the way to the right side..? The scope was noted to be in the cecum by identification of the ileocecal valve and appendiceal orifice.? There were three 0.25 cm flat polyps few millimeters away from the appendiceal orifice. All 3 of these were removed with cold forceps with minimal bleeding. These were sent as a single specimen. I was able to cannulate the terminal ileum for several centimeters. There did appear to be a little bit of extrinsic compression on the terminal ileum, but the mucosa and lining all appeared normal. I was not able to identify any pathology arising here. I then began withdrawing the colonoscope using repeated irrigation as necessary for full evaluation of the colonic mucosa. ?Once the scope was withdrawn to the level of the rectum, great care was taken to examine portions of the rectal folds.? Finally, the scope was withdrawn and the patient was brought to the same-day surgery recovery unit as the anesthetic wore off. ?The findings and instructions were shared with the patient prior to discharge. Arion Bowel Prep Arion Bowel Prep Right Colon: 2 Left Colon: 3 Transverse Colon: 3 Total Score: 8
[2025-03-10 06:21] VITALS: BP 165/76; PULSE 74; RESP 16; TEMP 36.6; O2SAT 99
[2025-03-10] MEDS: Lactated Ringers 1,000 ML 80 ML IV (06:39)
--- NOTE | 2025-03-10 07:07 | ANES.PREOP_ITS ---
General Info Date of Service Date Performed: 03/10/25 Height: 5 ft 1 in Weight: 62.3 kg Body Mass Index (BMI): 25.9 Surgical Procedure: Operation Date: 03/10/25 07:35 Proposed Procedure Side Surgeon kalli Lal MD Meds Allergies and Home Medications Allergies Allergy/AdvReac Type Severity Reaction Status Date / Time hydrochlorothiazide Allergy Unknown Verified 03/10/25 06:09 lisinopril Allergy Unknown Verified 03/10/25 06:09 nitrofurantoin AdvReac Intermediate Nausea Verified 03/10/25 06:09 Home Medication ?Medication ?Instructions ?Recorded aspirin 81 mg tablet,delayed 81 mg PO DAILY #100 tab-c aps 05/30/15 release (Aspir-) nebulizer and compressor #1 ea 08/04/21 nebulizer and compressor #1 ea 08/06/21 losartan 50 mg tablet 75 mg (1.5 x 50 mg) PO DAILY #135 05/04/24 tab-caps metoprolol succinate 100 mg 100 mg PO DAILY #90 tab-ca ps 06/06/24 tablet,extended release 24 hr omeprazole 20 mg capsule,delayed 20 mg PO DAILY #90 ca ps 07/11/24 release clonazepam 0.5 mg tablet 0.5 mg PO BID PRN anxiety #1 0 07/22/24 tab-caps ipratropium 0.5 mg-albuterol 3 mg 3 ml inhalation Q4H PRN shortness 07/22/24 (2.5 mg base)/3 mL nebulization of breath or wheezing #90 mL soln albuterol sulfate 90 mcg/actuation 2 puff inhalation Q ID PRN 12/05/24 aerosol inhaler (Ventolin HFA) shortness of breath or wheezing #8.5 grams imipramine HCl 50 mg tablet 50 mg PO DAILY #90 tab-cap s 12/08/24 simvastatin 40 mg tablet 40 mg PO DAILY #90 tab-caps 01/06/25 Current Visit Medications: Current Medications Generic Name Dose Route Start Last Admin Trade Name Freq PRN Reason Stop Dose Admin Ringer's Solution 1,000 mls @ 80 mls/hr 03/10/25 06:00 03/10/25 06:39 IV 03/10/25 23:59 80 mls/hr INFUSION GRIS Administration IV Miscellaneous Supplies 1 each 03/10/25 06:00 Iv Access IV 03/10/25 23:59 DIRECTED GRIS Sodium Biphosphate/Sodium Phosphate 133 ml 03/10/25 06:00 Na Phosphate Enema-Adult 133 Ml Btl VT 03/10/25 23:59 DIRECTED PRN Sodium Chloride 0 ml 03/10/25 06:00 Normal Saline Flush 10 Ml Syr IV 03/10/25 23:59 PRN PRN Sodium Chloride 0 ml 03/10/25 06:00 Normal Saline 10 Ml Vial IJ 03/10/25 23:59 DIRECTED PRN Sterile Water 0 ml 03/10/25 06:00 Water,Injection,Sterile 10 Ml Vial IJ 03/10/25 23:59 DIRECTED PRN PFSH Active Problems Active Problems: Problem Status Onset Code Family history of colon cancer in father Acute Z80.0 Abdominal mass, RLQ (right lower quadrant) Acute R19.03 Hypokalemia Acute E87.6 Abdominal mass Acute R19.00 Elevated brain natriuretic peptide (BNP) level Acute R79.89 Orthopnea Acute R06.01 Diverticulitis Chronic K57.92 Recurrent UTI (urinary tract infection) Acute N39.0 Anxiety disorder Acute F41.9 Hiatal hernia Chronic K44.9 Allergic sinusitis Acute J30.9 Epigastric pain Acute R10.13 Chronic GERD Acute 12/26/15 K21.9 Depressive disorder Acute 11/01/12 F32.9 Hypertension Chronic I10 Depression Chronic F32.9 Memory loss Chronic R41.3 Hypercholesteremia Chronic E78.0 Chronic obstructive pulmonary disease (COPD) Chronic J44.9 Coronary disease Chronic I25.10 Medical History Medical History Hx of non-ST elevation myocardial infarction (NSTEMI) 09/05/2010 Sigmoid diverticulitis Acute hemorrhoid (04/23/17) Constipation (04/23/17) History of tobacco use quit 2009 - after CABG; 40 packyr hx Family history of colorectal cancer in brother. anginal episode (08/25/13) a. Initial EKG no change. b. Initial troponin negative. c. 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 states she has been discharged from their care. Ventricular aneurysm History of surgery a. CABG x3 2008. b. Aneurysm surgery 2009. Colonoscopy - [facility] (10/09/17) Tobacco Smoking/Tobacco Use Status: Current-Occasional Tobacco Type: cigarettes Passive smoking exposure: Yes Second hand exposure: Yes Alcohol Alcohol Intake: never Substance Use Substance use: Daily Substance use type: marijuana Details: Cookie. Vital Signs and Lab Results Vital Signs Most Recent Vital Signs in EMR: Most Recent Vital Signs Temp Pulse Resp BP Pulse Ox 36.6 C 74 16 165/76 H 99 03/10/25 06:21 03/10/25 06:21 03/10/25 06:21 03/10/25 06:21 03/10/25 06:21 Lab Results Complete Blood Count: WBC, (4.4-10.8) 9.04 10^3/uL 02/21/25, 16:08 RBC, (3.93-5.22) 3.80 10^6/uL L 02/21/25, 16:08 Hgb, (11.2-15.7) 11.6 g/dL 02/21/25, 16:08 Hct, (36.0-46.0) 35.7 % L 02/21/25, 16:08 Plt Count, (130-400) 259 10^3/uL 02/21/25, 16:08 VBG Lactate, (<or=2.0) 1.8 mmol/L 02/21/25, 16:08 Complete Metabolic Panel: Sodium, (136-145) 137 mmol/L 02/21/25, 16:08 Potassium, (3.5-5.1) 2.9 mmol/L L* 02/21/25, 16:08 Chloride, (98-107) 96 mmol/L L 02/21/25, 16:08 Carbon Dioxide, (21.0-32.0) 26.9 mmol/L 02/21/25, 16 :08 BUN, (7-18) 6 mg/dL L 02/21/25, 16:08 Creatinine, (0.55-1.02) 0.9 mg/dL 02/21/25, 16:08 Est GFR (CKD-EPI 2020), (mL/min/1.73m2) 67.08 02/21/25, 16:08 Calcium, (8.5-10.1) 9.3 mg/dL 02/21/25, 16:08 Albumin, (3.4-5.0) 3.1 g/dL L 02/21/25, 16:08 Glucose, (74-106) 103 mg/dL 02/21/25, 16:08 Liver Function Panel: ALT, (14-59) 13 U/L L 02/21/25, 16:08 AST, (15-37) 18 U/L 02/21/25, 16:08 Coagulation Panel: INR, (0.9-1.1) 1.8 H 02/21/25, 16:59 PT, (9.1-11.1) 17.0 sec H 02/21/25, 16:59 APTT, (20.6-30.2) 32.5 sec H 02/21/25, 16:59 Pancreas Panel: Lipase, (<78) 19 U/L 02/21/25, 16:08 Imaging and Studies Imaging and Studies Study information below may be from another EMR and interpreted by another provider. Please see original notes in EMR for more complete details. Echocardiogram Summary: 05/16:Conclusion Normal left ventricular wall thickness and chamber size. Ejection fraction is 40 to 45%. There are wall motion abnormalities involving the inferior and posterior lateral segments. There is stage I diastolic dysfunction which is normal for patient age Normal right ventricular size and systolic function Left atrium is mildly enlarged. Right atrial size is normal Aortic valve is mildly sclerotic and trileaflet with mild regurgitation Mildly thickened mitral leaflets. There is moderate eccentric mitral regurgitation Normal tricuspid valve with mild to moderate regurgitation. Estimated right ventricular systolic pressure is 34 mmHg Mildly dilated ascending aorta 3.51 cm Anesthesia Assessment and Plan Anesthesia History Personal History: Delayed Emergence Family History: No Family History of Anesthesia Complications Exercise Tolerance Exercise Tolerance: Metabolic Equivalents>4 Pertinent Negatives Pertinent Negatives: No Symptoms of GERD Cardiac & Pulmonary Exam Cardiac Exam: Normal S1/S2 Heart Sounds Pulmonary Exam: Clear Bilateral Breath Sounds Implantable Cardiac Device Does patient have a Pacemaker or an ICD?: No Airway Exam Known Difficult Airway: No Mallampati Class: 1 Mouth Opening: Normal (> 3cm) Thyromental Distance: Less than 3 cm Neck Range of Motion: Full ROM Neck Circumference: Normal Teeth Condition: Removable Dentures/Plates Upper ASA Classification ASA Score: ASA 3 Emergency Case?: No NPO Status NPO Status: NPO Clears >2 hours, Solids >8 hours Anesthesia Plan Resuscitation Status: Full Code Anesthesia Technique: General Anesthesia Airway Planned: Natural Airway Monitors Used: Standard Monitors Preoperative Comments:: Pt. able to sleep flat at night with out reflux symptoms. No GERD now. Pt. states she feels hungry and has not eaten since Thursday.
[2025-03-10 07:27] VITALS: BMI 25.9
--- NOTE | 2025-03-10 08:04 | BOWEL_PTH ---
PATIENT: Xi Stewart LOC: PAGE U#:[id number] AGE/SX: 74/F ROOM: RE03/10/[address]: Gustavo Lal MD : 1950 BED: DIS: 03/10/2025 SPEC #: [id number] RECD: 03/10/25 11:00 STATUS: [place]IN[place]O RE #: [id number] LORIE: 03/10/25 08:[address]: Gustavo Lal DEPT: Surgical Specimen RECD BY: Briana Driscoll ENTERED: 03/10/25 11:00 SP TYPE: Bowel OTHR DR: Godfrey Durand MD Tissues: 1 - BIOPSY BOWEL Procedures: GROSS AND MICRO LEVEL 4 Comments: [id number]
[2025-03-10 08:23] VITALS: BP 125/50; PULSE 64; RESP 18; TEMP 36.2; O2SAT 100
--- NOTE | 2025-03-10 08:44 | W.ANESPOSTOP ---
Postoperative Evaluation Date, Time and Location Date Performed: 03/10/25 Time Performed: 08:44 Patient Location: Day Surgery Unit Vital Signs Most Recent Imported Vital Signs: Most Recent Vital Signs Temp Pulse Resp BP Pulse Ox 36.2 C L 64 18 125/50 L 100 03/10/25 08:23 03/10/25 08:23 03/10/25 08:23 03/10/25 08:23 03/10/25 08:23 Pain Score Most Recent Pain Score: Most Recent Pain Score Pain Level 0 03/10/25 08:23 Assessment Mental Status: Awake (Alert & Oriented to Patient Baseline) Airway and Respiratory Function: Patent airway with normal (patient baseline) respiratory exam Cardiovascular Function: Hemodynamically Stable Hydration Status: Adequately Hydrated Nausea & Vomiting: No Nausea or Vomiting Pain: Pt. Denies Any Pain Peripheral Nerve Block: Patient did not receive a nerve block
[2025-03-10 08:59] VITALS: BP 139/49; PULSE 66; RESP 14; TEMP 36.2; O2SAT 100
== END 2025-03-10 09:15 | disposition home or self-care (01) ==
LOC: SUR 05:55
PROVIDERS: PCP Family Medicine; Visit Provider Surgery
PROC: 0DJD8ZZ Inspection of Lower Intestinal Tract, Via Natural or Artificial Opening Endoscopic (ICD-10-PCS; CPT 45378; principal; 2025-03-10 07:30)
DX: R19.03 Right lower quadrant abdominal swelling, mass and lump (principal); D12.0 Benign neoplasm of cecum; K57.30 Diverticulosis of large intestine without perforation or abscess without bleeding
CPT/HCPCS: 45380; 88305; J2704

== ENCOUNTER → 2025-03-29 11:30 | Outpatient (BNVA) | payer MEDICARE, BC, SELFPAY | PROVIDERS: PCP Family Medicine; Referring Provider Family Medicine; Visit Provider Surgery | DX: R19.03 Right lower quadrant abdominal swelling, mass and lump (principal); D12.6 Benign neoplasm of colon, unspecified; Z80.0 Family history of malignant neoplasm of digestive organs | CPT/HCPCS: 99214 ==

== ENCOUNTER → 2025-04-10 01:59 | Outpatient (CLI) | payer MEDICARE, BC, SELFPAY ==
--- NOTE | 2025-04-10 13:30 | DI.US_ITS ---
APPROVED REPORT EXAM: Comprehensive 2D, Doppler, and color-flow Echocardiogram Patient Location: Out-Patient Carpet Weaver: Sal Abreu RDCS (AE) Indications: Recheck moderate mitral regurgitation Other Information Study Quality: Fair Conclusion Technically fair study. Images are foreshortened Normal left ventricular wall thickness and chamber size. Ejection fraction is 50 to 55%. There are no segmental wall motion abnormalities Normal right ventricular size and function Both atria are moderately enlarged Aortic valve is trileaflet and sclerotic with mild regurgitation Normal mitral valve with moderate eccentric regurgitation Moderate tricuspid regurgitation. Estimated right ventricular systolic pressure is 46 mmHg Mildly dilated ascending aorta 3.46 cm Wall motion Left Ventricle The left ventricle is normal size. The left ventricular systolic function is normal. The left ventricular ejection fraction is within the normal range. There is normal left ventricular wall thickness. No segmental wall motion abnormalities There is no ventricular septal defect visualized. LVEF is 50-55%. Right Ventricle The right ventricle is normal size. The right ventricular systolic function is normal. Atria Left atrium is moderately dilated. Right atrium is moderately dilated. Aortic Valve The aortic valve is mildly sclerotic. There is no aortic valvular stenosis. Mild aortic regurgitation. Mitral Valve The mitral valve is normal in structure. No evidence of mitral valve stenosis. Moderate eccentric mitral regurgitation Tricuspid Valve The tricuspid valve is normal in structure. There is no tricuspid valve stenosis. Moderate tricuspid regurgitation. The RVSP is 45.5 mmHg. Pulmonic Valve The pulmonary valve is normal in structure. There is no pulmonic valvular stenosis. Trace pulmonic regurgitation. Great Vessels The aortic root is normal in size. The ascending aorta is mildly dilated. Aortic arch is normal in caliber. IVC is normal in size and collapses >50% with inspiration. Pericardium There is no pericardial effusion. 2D Dimensions IVSD d PLAX 1.05 cm F: 0.6-1.0 Ao Root d 2.81 cm F: 2.7 - 3.3 LVPW d PLAX 0.98 cm F: 0.6 - 1.0 Ao Asc Diam d 3.46 cm F: 2.3 - 3.1 LVID d PLAX 4.82 cm F: 3.8 - 5.2 LVDs 3.59 cm F: 2.2 - 3.5 LV EF Teichholz 50.3 % FS 25.61 % LV EDV (Teich) 108.6 mL LV ESV (Teich) 53.9 mL Stroke Vol Index (Teich) 33.35 M-Mode TAPSE 1.62 cm (M/F) >1.7 LV Volumes - Method of Disks (Badillo's) Single Plane 2D LV Volumes Biplane 2D LV Volumes LV EDV A4C 95.0 mL LV EDV BP 96.22 mL F: 46 - 106 LV ESV A4C 49.7 mL LV ESV BP 50.4 mL LVEF(%) A4C 47.7 % LVEF(%) BP 47.59 % F: 54 - 74 LV EDV A2C 94.7 mL LV EDV BP Index 58.67 mL/m2 F: 29 - 61 LV ESV A2C 47.9 mL SV BP LVEF(%) A2C 49.5 % SV Index LA Volume LA Length A4C 6.3 cm LA Length A2C 6.0 cm LA Area A4C s 20.45 cm2 LA Area A2C s 20.24 cm2 LA Vol A4C A-L 56.60 mL LA Vol A2C A-L 57.68 mL LA Vol Biplane A-L 58.3 mL LA Vol/BSA A4C A-L LA Vol/BSA A2C A-L LA Vol/BSA BP A-L 35.5 mL/m2 LA Vol A4C MOD 52.7 mL LA Vol A2C MOD 55.9 mL LA Vol BP MOD 54.5 mL RA Volume RA Area A4C 12.4 cm2 RA ESV A4C (A-L) 30.7mL RA Vol/BSA A4C A-L RA Length A4C 4.2 cm RA ESV A4C (MOD) 30.4mL LV Diastology MV E' medial 0.031 (>0.07 m/s) MV E Vmax 0.87 (0.4-1.3 m/s) MV E/E' MED 28.49 (<14) MV A Vmax 0.60 (0.4-1.3 m/s) MV E' lateral 0.066 (>0.1 m/s) E/A Ratio 1.5 MV E/E' LAT 13.31 (<14) MV E' Average 0.048 m/s MV E/E'(average) 18.15 Aortic Valve AoV Vmax 1.28 m/s LVOT Vmax 0.72 m/s AoV Peak Grad 47.5 mmHg LVOT Peak Grad 2.1 mmHg AoV Area (Vmax) 1.76 cm2 LVOT VTI 0.176 m AoV VTI 0.301 m LVOT Mean Grad 1.0 mmHg AoV Mean Aaron. 0.86 m/s LVOT SV 54.99 mL AoV Mean Grad 3.4 mmHg LVOT Diam s 1.95 cm AoV Area (VTI) 1.83 cm2 AV Regurg Peak Gr. 6.52 mmHg Velocity Ratio 0.56 AR Decel Cecil 2.5m/sec2 AR DT 1859 msec AR PHT 539 msec AR Vmax 4.70 m/s Mitral Valve MV DT 132 (160-240 msec) MR Vmax 6.17 m/s MV Vmax TIPS 0.93 m/s MR VTI 2.279 m MV Mean Grad 1.2 (<2mmHg) MR Peak Grad 152.1 mmHg MV VTI 0.318 m MR Mean Grad 95.4 mmHg MR PISA Radius 0.45 cm MR Aliasing Velocity 0.36 m/s Pulmonary Valve PV Vmax 0.82 (0.5-1.5 m/s) RVOT Vmax 0.42 m/s PV Peak Grad 2.7 mmHg RVOT Peak Gr. 0.7 mmHg PV Mean Aaron 0.57 m/s RVOT VTI 0.099 m PV Mean Grad 1.5 mmHg RVOT Mean Gr. 0.4 mmHg Tricuspid Valve RA Pressure 3.00 mmHg TR Vmax 3.26 m/s TV S' 0.11 m/s TR Peak Grad 42.4 mmHg RVSP (TR) 45.5 mmHg
== END ==
LOC: DI 01:59
PROVIDERS: PCP Family Medicine; Visit Provider Family Medicine
DX: R01.1 Cardiac murmur, unspecified (principal); I08.3 Combined rheumatic disorders of mitral, aortic and tricuspid valves
CPT/HCPCS: 93306

== ENCOUNTER 2025-04-17 07:57 | Outpatient (CLI) | payer MEDICARE, BC, SELFPAY ==
--- NOTE | 2025-04-17 07:45 | RT.EKG_ITS ---
APPROVED REPORT Exam: Resting ECG Reason for Exam: CAD Patient Location: O HR:64 bpm ECG Measurements Heart Rate 64 AXIS IN 219 P 22 QRSd 99 QRS 8 QT 429 T 142 QTc 443 Conclusion Sinus rhythm...normal P axis, V-rate 50- 99 Borderline prolonged IN interval...IN >212, V-rate 50- 90 Abnormal T, consider ischemia, lateral leads...T <-0.20mV, I aVL V5 V6
== END 2025-04-17 07:58 | disposition home or self-care (01) ==
LOC: DI.CARD 07:58
PROVIDERS: PCP Family Medicine; Visit Provider Registered Nurse
DX: I25.10 Atherosclerotic heart disease of native coronary artery without angina pectoris (principal); I34.0 Nonrheumatic mitral (valve) insufficiency
CPT/HCPCS: 93010

== ENCOUNTER → 2025-04-17 10:53 | Outpatient (BNVA) | payer MEDICARE, BC, SELFPAY | PROVIDERS: PCP Family Medicine; Referring Provider Family Medicine; Visit Provider Registered Nurse | DX: I34.0 Nonrheumatic mitral (valve) insufficiency (principal); I25.10 Atherosclerotic heart disease of native coronary artery without angina pectoris; Z79.02 Long term (current) use of antithrombotics/antiplatelets; Z79.899 Other long term (current) drug therapy | CPT/HCPCS: 93005; 99215 ==